=== PATIENT | female | born 1970 | race Caucasian/White ===

== ENCOUNTER → 2016-11-17 | Outpatient (REF) | payer OTHER, MEDICAID | LOC: M LAB REF 15:48 | PROVIDERS: ATTEND Physician Assistant | DX: J11.00 Influenza due to unidentified influenza virus with unspecified type of pneumonia (principal) ==

== ENCOUNTER → 2017-01-17 | Outpatient (REF) | payer OTHER, MEDICAID | LOC: M LAB REF 09:24 | PROVIDERS: ATTEND Physician Assistant Medical | DX: R30.0 Dysuria (principal) ==

== ENCOUNTER 2017-02-03 16:32 | Emergency (ER) | payer MEDICAID, OTHER ==
[~2017-02-03] VITALS: Ht 167.6 cm; Wt 64.0 kg
[2017-02-03 17:07] LABS: BASO % 0.6 % (0.0-1.0); EOS # 0.1 K/mm3 (0.0-0.50); EOS % 1.7 % (0.0-3.0); LARGE UNSTAINED CELL # 0.2 K/mm3 (0.0-0.4); LARGE UNSTAINED CELL % 2.6 % (0.0-4.0); LYMPH # 1.7 K/mm3 (1.5-4.5); LYMPH % 25.5 % (24.0-44.0); MEAN CORPUSCULAR HEMOGLOBIN 29.1 pg (27.0-33.0); MEAN CORPUSCULAR HGB CONC 32.8 g/dl (32.0-36.5); MEAN CORPUSCULAR VOLUME 88.9 fl (80.0-96.0); MONO # 0.4 K/mm3 (0.0-0.8); MONO % 5.6 % (0.0-5.0); NEUTROPHILS # 4.2 K/mm3 (1.8-7.7); NEUTROPHILS % 64.1 % (36.0-66.0); PLATELET COUNT, AUTOMATED 183 k/mm3 (150-450); RED CELL DISTRIBUTION WIDTH 13.7 % (11.5-14.5); WHITE BLOOD COUNT 6.5 K/mm3 (4.0-10.0)
[2017-02-03 17:30] LABS: ANION GAP 7 MEQ/L (8-16); BLOOD UREA NITROGEN 12 MG/DL (7-18); CALCIUM LEVEL 9.1 MG/DL (8.5-10.1); CARBON DIOXIDE LEVEL 28 MEQ/L (21-32); CHLORIDE LEVEL 105 MEQ/L (98-107); CREATININE FOR GFR 0.72 MG/DL (0.55-1.02); GLOMERULAR FILTRATION RATE > 60.0 (>58); GLUCOSE, FASTING 101 MG/DL (70-105); POTASSIUM SERUM 3.8 MEQ/L (3.5-5.1); SODIUM LEVEL 140 MEQ/L (136-145)
--- NOTE | 2017-02-03 17:59 | REP ---
PORTABLE CHEST: HISTORY: Chest pain. COMPARISON: 06/12/2016 The technique utilized in obtaining the radiograph has magnified the cardiac silhouette and accentuated the interstitial markings. The superior mediastinal structures are midline. The cardiac silhouette is unremarkable in size, shape, and position. The diaphragmatic surfaces of the lungs are regular, and the costophrenic angles are clear. The pulmonary rivera are clear. The imaged osseous structures are intact. IMPRESSION: There is no acute cardiopulmonary disease. Signed by Ruben Clay DO 02/05/2017 03:42 P
[2017-02-03] MEDS ORDERED: NITROGLYCERIN 0.4 MG SUBL TABLET SL PRN (18:15)
[2017-02-03 18:24] VITALS: BP 129/72
[2017-02-03] MEDS ORDERED: ASPIRIN 81 MG CHEW TABLET PO ONE (18:30)
[2017-02-03] MEDS ORDERED: fentaNYL 100 MCG/2 ML INJECTION (J3010) IV ONE (19:15)
[2017-02-03 22:02] VITALS: BP 119/71
--- NOTE | 2017-02-04 08:40 | ECGEPIP ---
Stationary ECG Study [facility] - ED Test Date: 2017-02-03 Pat Name: DIDI PATEL Department: Room: - Gender: F Cps Team Lead: : 1970 Requested By: Shea Buchanan Order Number: [id number] Reading MD: Shea Buchanan Measurements Intervals [place] Rate: 68 P: 66 [place]: 147 QRS: 37 QRSD: 81 T: 36 QT: 349 QTc: 373 Interpretive Statements SINUS RHYTHM WITH SINUS ARRHYTHMIA LOW QRS VOLTAGE IN PRECORDIAL LEADS ANTEROSEPTAL MYOCARDIAL INFARCTION, OF INDETERMINATE AGE INCREASED RATE 06/12/16 Electronically Signed On 02-04-2017 8:40:01 EDT by Shea Buchanan
--- NOTE | 2017-02-04 08:44 | ECGEPIP ---
Stationary ECG Study [facility] - ED Test Date: 2017-02-03 Pat Name: DIDI PATEL Department: Room: - Gender: F Social Security Assessor: adeola : 1970 Requested By: COREEN SAGE Order Number: [id number] Reading MD: Shea Buchanan Measurements Intervals [place] Rate: 50 P: 67 [place]: 145 QRS: 58 QRSD: 86 T: 43 QT: 394 QTc: 361 Interpretive Statements SINUS BRADYCARDIA SEPTAL MYOCARDIAL INFARCTION, PROBABLY OLD DECREASED RATE 02/03/17 17:00 Electronically Signed On 02-04-2017 8:44:06 EDT by Shea Buchanan
== END 2017-02-03 22:30 | disposition home or self-care (01) ==
LOC: M ED 17:35
DX: R07.9 Chest pain, unspecified (principal); R11.0 Nausea; D64.9 Anemia, unspecified; Z91.018 Allergy to other foods
CPT/HCPCS: 71010; 80048; 82550; 82553; 85025; 85379; 93005; 93041; 94760; 96374; 99285; J3010

== ENCOUNTER → 2017-02-24 | Outpatient (REF) | payer OTHER | LOC: M LAB REF 16:29 | PROVIDERS: ATTEND Physician Assistant | DX: R30.0 Dysuria (principal) ==

== ENCOUNTER → 2017-04-14 | Outpatient (REF) | payer OTHER | LOC: M LAB REF 16:48 | PROVIDERS: ATTEND Physician Assistant | DX: R30.0 Dysuria (principal) ==

== ENCOUNTER → 2017-06-16 | Outpatient (REF) | payer OTHER | LOC: M LAB REF 16:00 | PROVIDERS: ATTEND Physician Assistant Medical | DX: N39.0 Urinary tract infection, site not specified (principal) ==

== ENCOUNTER → 2017-07-14 | Outpatient (REF) | payer OTHER | LOC: M LAB REF 16:35 | PROVIDERS: ATTEND Advanced Practice Midwife | DX: Z12.4 Encounter for screening for malignant neoplasm of cervix (principal); R30.0 Dysuria ==

== ENCOUNTER → 2017-11-20 | Outpatient (REF) | payer OTHER ==
[2017-11-20 21:57] LABS: AMORPHOUS SEDIMENT SMALL (NEGATIVE); APPEARANCE, URINE CLOUDY (CLEAR); BACTERIA, URINE AUTO NEGATIVE (NEGATIVE); BILIRUBIN, URINE AUTO NEGATIVE (NEGATIVE); BLOOD, URINE BLOOD NEGATIVE (NEGATIVE); COLOR, URINE YELLOW (YELLOW); GLUCOSE, URINE (UA) AUTO NEGATIVE (NEGATIVE); KETONE, URINE AUTO NEGATIVE (NEGATIVE); LEUKOCYTE ESTERASE, URINE AUTO NEGATIVE (NEGATIVE); MUCUS, URINE SMALL (NEGATIVE); NITRITE, URINE AUTO NEGATIVE (NEGATIVE); PROTEIN, URINE AUTO NEGATIVE (NEGATIVE); RBC, URINE AUTO 1 /HPF (0-3); SPECIFIC GRAVITY URINE AUTO 1.024 (1.002-1.035); SQUAMOUS EPITHELIAL CELL UR AU 3 /HPF (0-6); WBC, URINE AUTO 2 /HPF (0-3)
== END ==
LOC: M LAB REF 15:08
DX: N39.0 Urinary tract infection, site not specified (principal)

== ENCOUNTER → 2018-02-07 | Outpatient (REF) | payer OTHER ==
[2018-02-07 14:00] LABS: AMORPHOUS SEDIMENT SMALL (NEGATIVE); APPEARANCE, URINE CLEAR (CLEAR); BACTERIA, URINE AUTO NEGATIVE (NEGATIVE); BILIRUBIN, URINE AUTO NEGATIVE (NEGATIVE); BLOOD, URINE BLOOD NEGATIVE (NEGATIVE); COLOR, URINE STRAW (YELLOW); GLUCOSE, URINE (UA) AUTO NEGATIVE (NEGATIVE); KETONE, URINE AUTO NEGATIVE (NEGATIVE); LEUKOCYTE ESTERASE, URINE AUTO NEGATIVE (NEGATIVE); NITRITE, URINE AUTO NEGATIVE (NEGATIVE); PROTEIN, URINE AUTO NEGATIVE (NEGATIVE); RBC, URINE AUTO 0 /HPF (0-3); SPECIFIC GRAVITY URINE AUTO 1.004 (1.002-1.035); SQUAMOUS EPITHELIAL CELL UR AU 1 /HPF (0-6); UROBILINOGEN, URINE AUTO 0.2 mg/dL (0.0-2.0); WBC, URINE AUTO 0 /HPF (0-3)
== END ==
LOC: M LAB REF 12:54
DX: N39.0 Urinary tract infection, site not specified (principal)
CPT/HCPCS: 81001

== ENCOUNTER → 2018-03-15 | Outpatient (REF) | payer OTHER ==
[2018-03-15 19:53] LABS: APPEARANCE, URINE CLEAR (CLEAR); BACTERIA, URINE AUTO NEGATIVE (NEGATIVE); BILIRUBIN, URINE AUTO NEGATIVE (NEGATIVE); BLOOD, URINE BLOOD NEGATIVE (NEGATIVE); COLOR, URINE YELLOW (YELLOW); GLUCOSE, URINE (UA) AUTO NEGATIVE (NEGATIVE); KETONE, URINE AUTO NEGATIVE (NEGATIVE); LEUKOCYTE ESTERASE, URINE AUTO NEGATIVE (NEGATIVE); NITRITE, URINE AUTO NEGATIVE (NEGATIVE); PROTEIN, URINE AUTO NEGATIVE (NEGATIVE); RBC, URINE AUTO 0 /HPF (0-3); SPECIFIC GRAVITY URINE AUTO 1.002 (1.002-1.035); SQUAMOUS EPITHELIAL CELL UR AU 1 /HPF (0-6); UROBILINOGEN, URINE AUTO 0.2 mg/dL (0.0-2.0); WBC, URINE AUTO 1 /HPF (0-3)
== END ==
LOC: M LAB REF 17:09
DX: N39.46 Mixed incontinence (principal)

== ENCOUNTER → 2018-04-27 | Outpatient (REF) | payer OTHER ==
[2018-04-27 21:44] LABS: AMORPHOUS SEDIMENT SMALL (NEGATIVE); APPEARANCE, URINE CLOUDY (CLEAR); BACTERIA, URINE AUTO NEGATIVE (NEGATIVE); BILIRUBIN, URINE AUTO NEGATIVE (NEGATIVE); BLOOD, URINE BLOOD NEGATIVE (NEGATIVE); COLOR, URINE YELLOW (YELLOW); GLUCOSE, URINE (UA) AUTO NEGATIVE (NEGATIVE); KETONE, URINE AUTO NEGATIVE (NEGATIVE); LEUKOCYTE ESTERASE, URINE AUTO NEGATIVE (NEGATIVE); NITRITE, URINE AUTO NEGATIVE (NEGATIVE); PROTEIN, URINE AUTO NEGATIVE (NEGATIVE); RBC, URINE AUTO 2 /HPF (0-3); SPECIFIC GRAVITY URINE AUTO 1.017 (1.002-1.035); SQUAMOUS EPITHELIAL CELL UR AU 3 /HPF (0-6); WBC, URINE AUTO 1 /HPF (0-3)
== END ==
LOC: M LAB REF 15:54
DX: N39.0 Urinary tract infection, site not specified (principal)
CPT/HCPCS: 81001

== ENCOUNTER → 2018-06-24 | Outpatient (CLI) | payer OTHER | LOC: M RAD 10:54 | DX: Z12.31 Encounter for screening mammogram for malignant neoplasm of breast (principal); Z53.9 Procedure and treatment not carried out, unspecified reason ==

== ENCOUNTER → 2018-07-18 | Outpatient (CLI) | payer OTHER ==
[2018-07-18 12:21] LABS: HEMATOCRIT 44.1 % (36.0-47.0); HEMOGLOBIN 14.6 g/dl (12.0-15.5); MEAN CORPUSCULAR HEMOGLOBIN 30.2 pg (27.0-33.0); MEAN CORPUSCULAR HGB CONC 33.1 g/dl (32.0-36.5); MEAN CORPUSCULAR VOLUME 91.1 fl (80.0-96.0); PLATELET COUNT, AUTOMATED 163 10^3/uL (150-450); RED BLOOD COUNT 4.84 10^6/uL (4.00-5.40); RED CELL DISTRIBUTION WIDTH 13.6 % (11.5-14.5); WHITE BLOOD COUNT 7.5 10^3/uL (4.0-10.0)
[2018-07-18 12:43] LABS: ALT/SGPT 17 U/L (12-78); ANION GAP 5 MEQ/L (8-16); AST/SGOT 12 U/L (7-37); BLOOD UREA NITROGEN 11 MG/DL (7-18); CALCIUM LEVEL 9.2 MG/DL (8.5-10.1); CARBON DIOXIDE LEVEL 26 MEQ/L (21-32); CHLORIDE LEVEL 108 MEQ/L (98-107); CREATININE FOR GFR 0.75 MG/DL (0.55-1.30); GLOMERULAR FILTRATION RATE > 60.0 (>58); GLUCOSE, FASTING 81 MG/DL (70-100); POTASSIUM SERUM 4.5 MEQ/L (3.5-5.1); SODIUM LEVEL 139 MEQ/L (136-145)
[2018-07-18 12:44] LABS: ALBUMIN 4.1 GM/DL (3.2-5.2); ALBUMIN/GLOBULIN RATIO 1.17 (1.00-1.93); ALKALINE PHOSPHATASE 61 U/L (45-117); BILIRUBIN,TOTAL 0.7 MG/DL (0.2-1.0); CHOLESTEROL LEVEL 163 MG/DL (<200); FREE T4 0.88 NG/DL (0.76-1.46); HDL CHOLESTEROL 50 MG/DL (>40); LDL CHOLESTEROL 94 MG/DL (<100); NON-HDL-C 113 MG/DL; TOTAL PROTEIN 7.6 GM/DL (6.4-8.2); TRIGLYCERIDES LEVEL 96 MG/DL (<150)
== END ==
LOC: M LAB 11:38
DX: Z00.00 Encounter for general adult medical examination without abnormal findings (principal); R53.83 Other fatigue; Z13.220 Encounter for screening for lipoid disorders
CPT/HCPCS: 84443

== ENCOUNTER 2018-08-05 06:09 | Day surgery (SDC) | payer OTHER ==
[2018-08-05] MEDS: LR 1,000 ML IV ×2 (06:31→18:40)
[2018-08-05 06:38] LABS: HEMATOCRIT 47.8 % (36.0-47.0); HEMOGLOBIN 15.7 g/dl (12.0-15.5); MEAN CORPUSCULAR HEMOGLOBIN 30.1 pg (27.0-33.0); MEAN CORPUSCULAR HGB CONC 32.8 g/dl (32.0-36.5); MEAN CORPUSCULAR VOLUME 91.6 fl (80.0-96.0); PLATELET COUNT, AUTOMATED 239 10^3/uL (150-450); RED BLOOD COUNT 5.22 10^6/uL (4.00-5.40); RED CELL DISTRIBUTION WIDTH 13.3 % (11.5-14.5); WHITE BLOOD COUNT 10.9 10^3/uL (4.0-10.0)
[2018-08-05 06:53] LABS: CONTROL LINE HCG INT CTR LINE PRESENT; HCG, SERUM QUALITATIVE NEGATIVE (NEGATIVE)
[2018-08-05] MEDS ORDERED: dexameTHASONE 4 MG/ML 1ML VIAL (J1100) As Ordered (07:07)
[2018-08-05] MEDS ORDERED: PROPOFOL 200 MG/20 ML VIAL As Ordered (07:07)
[2018-08-05] MEDS ORDERED: LIDOCAINE 2% JELLY 30 ML As Ordered (07:07)
[2018-08-05] MEDS ORDERED: fentaNYL 100 MCG/2 ML INJECTION (J3010) As Ordered (07:07)
[2018-08-05] MEDS ORDERED: NEOSTIGMINE 10 MG/10 ML VIAL (J2710) As Ordered (07:07)
[2018-08-05] MEDS ORDERED: LIDOCAINE 2% INJ 100 MG/5 ML SDV (FOR ANES.) As Ordered (07:07)
[2018-08-05] MEDS ORDERED: ONDANSETRON 4MG/2ML VIAL (J2405) As Ordered (07:07)
[2018-08-05] MEDS ORDERED: ROCURONIUM BROMIDE 50 MG/5 ML VIAL As Ordered (07:07)
[2018-08-05] MEDS ORDERED: MIDAZOLAM INJ 2 MG/2 ML VIAL (J2250) As Ordered (07:07)
[2018-08-05] MEDS ORDERED: GLYCOPYRROLATE INJ 0.2 MG/ML 2 ML VIAL As Ordered (07:07)
[2018-08-05] MEDS ORDERED: HYDROmorphone HCL 2 MG/ML 1ML VIAL (J1170) As Ordered (07:07)
[2018-08-05] MEDS ORDERED: KETOROLAC 60 MG/2 ML VIAL (J1885) As Ordered (07:07)
[2018-08-05] MEDS ORDERED: ALBUTEROL SULFATE 2.5 MG/0.5 ML INH NEB SOLN As Ordered (07:20)
[2018-08-05] MEDS ORDERED: ePHEDrine SULFATE 25 MG/5 ML(5MG/ML) SYRINGE As Ordered (08:06)
[2018-08-05] MEDS: ceFAZolin 2 GM/D5W 50 ML IV BAG (J0690 PER 500MG) As Ordered (08:12)
[2018-08-05] MEDS ORDERED: PHENYLephrine HCL 500 MCG/5 ML (100MCG/ML) SYRINGE (J2370) As Ordered (08:33)
[2018-08-05] MEDS: BUPIVACAINE/EPIN 0.25% 30 ML VIAL As Ordered (09:00)
[2018-08-05] MEDS ORDERED: PERCOCET 5MG/325MG TAB PO (10:00)
[2018-08-05] MEDS ORDERED: fentaNYL 100 MCG/2 ML INJECTION (J3010) IV (10:00)
[2018-08-05] MEDS: ONDANSETRON 4MG/2ML VIAL (J2405) IV (10:11)
[2018-08-05] MEDS: KETOROLAC 30 MG/ML VIAL (J1885) IV (16:53)
[2018-08-05] MEDS: ALPRAZolam 0.25 MG TAB PO (16:53)
[2018-08-05] MEDS: PERCOCET 5MG/325MG TAB PO (19:50)
[2018-08-05] MEDS: SLF 3 ML SYR IV (23:43)
[2018-08-06] MEDS: SLF 3 ML SYR IV (06:28)
== END 2018-08-06 10:30 | disposition home or self-care (01) ==
LOC: M SDC 06:09 → M PED 18:14
DX: N81.11 Cystocele, midline (principal); N81.6 Rectocele; I49.9 Cardiac arrhythmia, unspecified; D64.9 Anemia, unspecified; F41.9 Anxiety disorder, unspecified; F32.9 Major depressive disorder, single episode, unspecified; R29.898 Other symptoms and signs involving the musculoskeletal system; F43.10 Post-traumatic stress disorder, unspecified; R06.02 Shortness of breath; N39.3 Stress incontinence (female) (male); T88.59XD Other complications of anesthesia, subsequent encounter; R09.89 Other specified symptoms and signs involving the circulatory and respiratory systems; Z91.018 Allergy to other foods; Z91.09 Other allergy status, other than to drugs and biological substances; Z98.51 Tubal ligation status; Z31.0 Encounter for reversal of previous sterilization
CPT/HCPCS: 57260

== ENCOUNTER 2018-08-10 21:28 | Emergency (ER) | payer OTHER | END 2018-08-11 00:24 | disposition left against medical advice (07) | LOC: M ED 08-11 00:24 | DX: R11.0 Nausea (principal); Z53.21 Procedure and treatment not carried out due to patient leaving prior to being seen by health care provider ==

== ENCOUNTER → 2018-11-01 | Outpatient (REF) | payer OTHER ==
[~2018-11-01] MED LIST: HAIRTAB PO; NITR100C2; OXYC1TAB23 PO; TRAM50TA2 PO; WOMECAP2 PO
[2018-11-01 17:55] LABS: APPEARANCE, URINE CLEAR (CLEAR); BACTERIA, URINE AUTO NEGATIVE (NEGATIVE); BILIRUBIN, URINE AUTO NEGATIVE (NEGATIVE); BLOOD, URINE BLOOD NEGATIVE (NEGATIVE); COLOR, URINE YELLOW (YELLOW); GLUCOSE, URINE (UA) AUTO NEGATIVE (NEGATIVE); KETONE, URINE AUTO NEGATIVE (NEGATIVE); LEUKOCYTE ESTERASE, URINE AUTO NEGATIVE (NEGATIVE); MUCUS, URINE SMALL (NEGATIVE); NITRITE, URINE AUTO NEGATIVE (NEGATIVE); PROTEIN, URINE AUTO NEGATIVE (NEGATIVE); RBC, URINE AUTO 1 /HPF (0-3); SPECIFIC GRAVITY URINE AUTO 1.019 (1.002-1.035); SQUAMOUS EPITHELIAL CELL UR AU 3 /HPF (0-6); UROBILINOGEN, URINE AUTO 0.2 mg/dL (0.0-2.0); WBC, URINE AUTO 3 /HPF (0-3)
== END ==
LOC: M LAB REF 16:39
PROVIDERS: ATTEND Physician Assistant Medical
DX: N39.0 Urinary tract infection, site not specified (principal)

== ENCOUNTER → 2018-11-09 | Outpatient (REF) | payer OTHER | LOC: M LAB REF 17:14 | PROVIDERS: ATTEND Obstetrics & Gynecology | DX: R30.0 Dysuria (principal) ==

== ENCOUNTER → 2018-11-21 | Outpatient (CLI) | payer OTHER ==
--- NOTE | 2018-11-22 05:53 | REP ---
Clinical: Pelvic and perineal pain . Technique: Transabdominal pelvic ultrasound followed by transvaginal examination for better evaluation of the endometrium and adnexa with color Doppler evaluation of the ovaries. Findings: Bladder is unremarkable and measures 9.4 x 5.9 x 5.9 cm . Normal retroflexed uterus measures 8.6 x 5.5 x 6.2 cm . The endometrial complex measures 16.3 mm thickness. No discrete uterine or endometrial abnormalities are appreciated. Bilateral ovaries are normal in appearance and vascularity without evidence for torsion. Right ovary measures 3.8 x 2.7 x 3.4 cm with 2.4 cm complex likely physiologic cyst ; R I = 0.51 . Left ovary measures 3.5 x 2.2 x 1.7 cm with degenerating hemorrhagic cyst ; R I = 0.51 . Small amount of free fluid in the cul-de-sac. No pelvic mass . Impression: 1. Retroflexed uterus with few Nabothian cysts. 2. Presumed physiologic changes to the bilateral ovaries without evidence for torsion. Consider reevaluation in 4-6 weeks to evaluate for resolution if the patient remains symptomatic. Electronically Signed by Donta Pantoja MD 11/22/2018 05:45 A
--- NOTE | 2018-11-22 05:56 | REP ---
Clinical: Bladder stone. Technique: Real time rivers scale and color evaluation of the kidneys and bladder using curved array transducer. Findings: The bilateral kidneys are normal in contour, size, echogenicity, and reniform shape without hydronephrosis, nephrolithiasis, cystic or renal mass lesion. Right kidney measures 11.2 x 5.0 x 3.7 cm. Left kidney measures 11.0 x 5.7 x 4.2 cm. Bladder is normal in appearance demonstrating bilateral ureteral jets without wall thickening, mass lesion, or obvious bladder calculus. Impression: Normal renal/bladder ultrasound. Electronically Signed by Donta Pantoja MD 11/22/2018 05:48 A
== END ==
LOC: M SMT 11:04
PROVIDERS: ATTEND Obstetrics & Gynecology
DX: R10.2 Pelvic and perineal pain (principal); N21.0 Calculus in bladder

== ENCOUNTER → 2018-12-16 | Outpatient (REF) | payer OTHER ==
[2018-12-16 17:57] LABS: APPEARANCE, URINE HAZY (CLEAR); BACTERIA, URINE AUTO NEGATIVE (NEGATIVE); BILIRUBIN, URINE AUTO NEGATIVE (NEGATIVE); BLOOD, URINE BLOOD NEGATIVE (NEGATIVE); COLOR, URINE YELLOW (YELLOW); GLUCOSE, URINE (UA) AUTO NEGATIVE (NEGATIVE); KETONE, URINE AUTO NEGATIVE (NEGATIVE); LEUKOCYTE ESTERASE, URINE AUTO NEGATIVE (NEGATIVE); MUCUS, URINE SMALL (NEGATIVE); NITRITE, URINE AUTO NEGATIVE (NEGATIVE); PROTEIN, URINE AUTO NEGATIVE (NEGATIVE); RBC, URINE AUTO 1 /HPF (0-3); SPECIFIC GRAVITY URINE AUTO 1.023 (1.002-1.035); SQUAMOUS EPITHELIAL CELL UR AU 7 /HPF (0-6); WBC, URINE AUTO 1 /HPF (0-3)
== END ==
LOC: M LAB REF 17:12
PROVIDERS: ATTEND Physician Assistant
DX: N39.0 Urinary tract infection, site not specified (principal)

== ENCOUNTER → 2019-01-27 | Outpatient (REF) | payer OTHER ==
[2019-01-27 12:55] LABS: APPEARANCE, URINE CLEAR (CLEAR); BACTERIA, URINE AUTO NEGATIVE (NEGATIVE); BILIRUBIN, URINE AUTO NEGATIVE (NEGATIVE); BLOOD, URINE BLOOD NEGATIVE (NEGATIVE); COLOR, URINE YELLOW (YELLOW); GLUCOSE, URINE (UA) AUTO NEGATIVE (NEGATIVE); KETONE, URINE AUTO NEGATIVE (NEGATIVE); LEUKOCYTE ESTERASE, URINE AUTO NEGATIVE (NEGATIVE); MUCUS, URINE SMALL (NEGATIVE); NITRITE, URINE AUTO NEGATIVE (NEGATIVE); PROTEIN, URINE AUTO NEGATIVE (NEGATIVE); RBC, URINE AUTO 0 /HPF (0-3); SPECIFIC GRAVITY URINE AUTO 1.012 (1.002-1.035); SQUAMOUS EPITHELIAL CELL UR AU 4 /HPF (0-6); UROBILINOGEN, URINE AUTO 0.2 mg/dL (0.0-2.0); WBC, URINE AUTO 2 /HPF (0-3)
== END ==
LOC: M LAB REF 11:53
PROVIDERS: ATTEND Family Medicine
DX: Z13.228 Encounter for screening for other metabolic disorders (principal)

== ENCOUNTER → 2019-01-27 | Outpatient (REF) | payer OTHER, MEDICAID ==
[2019-01-27 12:34] LABS: BASO % 0.4 % (0.0-1.0); EOS # 0.1 10^3/uL (0.0-0.50); EOS % 0.6 % (0.0-3.0); HEMOGLOBIN 14.4 g/dl (12.0-15.5); LYMPH # 1.6 10^3/uL (1.5-4.5); LYMPH % 20.9 % (24.0-44.0); MEAN CORPUSCULAR HEMOGLOBIN 28.6 pg (27.0-33.0); MEAN CORPUSCULAR VOLUME 89.5 fl (80.0-96.0); MONO # 0.7 10^3/uL (0.0-0.8); MONO % 9.5 % (0.0-5.0); NEUTROPHILS # 5.3 10^3/uL (1.8-7.7); NEUTROPHILS % 68.3 % (36.0-66.0); PLATELET COUNT, AUTOMATED 198 10^3/uL (150-450); RED BLOOD COUNT 5.03 10^6/uL (4.00-5.40); WHITE BLOOD COUNT 7.7 10^3/uL (4.0-10.0)
[2019-01-27 13:03] LABS: ALT/SGPT 16 U/L (12-78); BILIRUBIN,TOTAL 0.7 MG/DL (0.2-1.0); BLOOD UREA NITROGEN 10 MG/DL (7-18); CALCIUM LEVEL 8.6 MG/DL (8.5-10.1); CARBON DIOXIDE LEVEL 25 MEQ/L (21-32); CHLORIDE LEVEL 106 MEQ/L (98-107); CHOLESTEROL LEVEL 156 MG/DL (<200); CHOLESTEROL RISK RATIO 3.545 (<5); CREATININE FOR GFR 0.75 MG/DL (0.55-1.30); FREE T4 0.92 NG/DL (0.76-1.46); GLOMERULAR FILTRATION RATE > 60.0 (>58); GLUCOSE, FASTING 93 MG/DL (70-100); HDL CHOLESTEROL 44 MG/DL (>40); LDL CHOLESTEROL 93 MG/DL (<100); NON-HDL-C 112 MG/DL; POTASSIUM SERUM 4.1 MEQ/L (3.5-5.1); SODIUM LEVEL 138 MEQ/L (136-145); TOTAL PROTEIN 7.3 GM/DL (6.4-8.2); TRIGLYCERIDES LEVEL 94 MG/DL (<150)
[2019-01-27 17:52] LABS: TOTAL 25(OH) VITAMIN D 16.5 NG/ML (30.0-100.0)
[2019-01-29 00:06] LABS: Lyme Disease IgG/IgM Antibodie <0.91 ISR (0.00-0.90); Lyme Disease IgM Ab Quantitati <0.80 index (0.00-0.79)
== END ==
LOC: M LAB REF 11:57
PROVIDERS: ATTEND Family Medicine
DX: Z13.228 Encounter for screening for other metabolic disorders (principal)

== ENCOUNTER → 2019-03-10 | Outpatient (REF) | payer OTHER ==
[2019-03-10 21:49] LABS: AMORPHOUS SEDIMENT SMALL (NEGATIVE); APPEARANCE, URINE CLOUDY (CLEAR); BACTERIA, URINE AUTO NEGATIVE (NEGATIVE); BILIRUBIN, URINE AUTO NEGATIVE (NEGATIVE); BLOOD, URINE BLOOD NEGATIVE (NEGATIVE); COLOR, URINE YELLOW (YELLOW); GLUCOSE, URINE (UA) AUTO NEGATIVE (NEGATIVE); KETONE, URINE AUTO NEGATIVE (NEGATIVE); LEUKOCYTE ESTERASE, URINE AUTO NEGATIVE (NEGATIVE); NITRITE, URINE AUTO NEGATIVE (NEGATIVE); PROTEIN, URINE AUTO NEGATIVE (NEGATIVE); RBC, URINE AUTO 2 /HPF (0-3); SPECIFIC GRAVITY URINE AUTO 1.015 (1.002-1.035); SQUAMOUS EPITHELIAL CELL UR AU 8 /HPF (0-6); WBC, URINE AUTO 7 /HPF (0-3)
== END ==
LOC: M LAB REF 13:56
PROVIDERS: ATTEND Physician Assistant
DX: N39.0 Urinary tract infection, site not specified (principal)

== ENCOUNTER → 2019-07-25 | Outpatient (REF) | payer OTHER, MEDICAID ==
[2019-07-28 14:29] LABS: HPV HYBRID CAPTURE II Negative (Negative)
== END ==
LOC: M LAB REF 08:19
PROVIDERS: ATTEND Obstetrics & Gynecology
DX: Z12.4 Encounter for screening for malignant neoplasm of cervix (principal)

== ENCOUNTER → 2019-08-22 | Outpatient (CLI) | payer OTHER ==
--- NOTE | 2019-08-22 14:36 | REP ---
BILATERAL SCREENING DIGITAL MAMMOGRAM WITH 3D TOMOSYNTHESIS: There are no palpable abnormalities or other breast complaints. The the patient states she has not had a clinical breast examination in over a year. The Tyrer-Cuzick Score is: 9.1% . There are no comparisons, this is a baseline study. The patient complains of diffuse left breast pain. There is no focal pain. There are no focal palpable lesions on the right on the left. The breasts are extremely dense, which lowers the sensitivity of mammography. I suspect there is a dominant 2.3 cm mass laterally in the left breast and a dominant 244 cm mass in the midline of the left breast. These may represent a large breast cysts. There is no micro calcific cluster or architectural distortion that would indicate malignancy. There are no additional findings on 3D tomosynthesiss. Impression: BIRADS/ACR category 0 mammogram. Additional imaging evaluation is needed. I recommend the patient return for spot compression views and ultrasound of each breast. Additionally, because of the extreme breast density, I also recommend MRI at this time. Followup routine annual MRI should also be considered in the future as discussed below. Because of the increased breast density, annual adjunctive breast MRI in addition to screening mammography is recommended. These can be performed at alternating six month intervals. This mammogram was interpreted with the aid of a FDA approved computer-aided detection system. A. Negative mammogram reports should not delay biopsy if a dominant or clinically suspicious mass is present. B. Not all breast cancers are identified by mammography or tomosynthesis. C. Adenosis and dense breasts may obscure an underlying neoplasm. Patient letter M0 dense breasts. Electronically Signed by Bob Bronson MD 08/22/2019 02:27 P
== END ==
LOC: M RAD 13:03
PROVIDERS: ATTEND Obstetrics & Gynecology
DX: Z12.31 Encounter for screening mammogram for malignant neoplasm of breast (principal)
CPT/HCPCS: 77066; G0279

== ENCOUNTER → 2019-09-04 | Outpatient (CLI) | payer OTHER | LOC: M SMT 14:27 | PROVIDERS: ATTEND Obstetrics & Gynecology | DX: Z13.79 Encounter for other screening for genetic and chromosomal anomalies (principal) ==

== ENCOUNTER → 2019-09-11 | Outpatient (CLI) | payer OTHER ==
--- NOTE | 2019-09-11 14:44 | REP ---
DIGITAL DIAGNOSTIC BILATERAL MAMMOGRAPHY WITH CAD AND FOCUSED BILATERAL BREAST SONOGRAPHY: HISTORY: Screening study from August 22, 2019 was read as BI-RADS 0, incomplete exam due to bilateral mammographically visible masses. Diagnostic imaging was recommended. FINDINGS: Focal spot compression CC and MLO views of each breast were obtained. Breast parenchyma is heterogeneously dense in a pattern which may inhibit the sensitivity of mammography. The dominant densities originally seen on August 22, 2019 are less conspicuous. No microcalcification or architectural distortion is seen. SONOGRAPHIC FINDINGS: At 9-o'clock position in the right breast laterally, there is a 2.5 x 2.4 x 1.1 cm cyst which is felt to account for the mammographic opacity. The left breast is scanned at 12-o'clock position, corresponding the mammographic opacity, and a 2.6 x 1.4 x 2.0 cm cyst is seen in this location. No sonographically suspicious feature. IMPRESSION: BIRADS 2: BI-RADS/ACR category 2 mammogram. Benign Findings. BI-RADS category 2, benign findings. There is a simple cyst in each breast accounting for the mammographic opacity. Repeat screening mammography recommended in 1 year. This mammogram was interpreted with the aid of an FDA-approved computer-aided detection system. The patient states that she/he has not had a clinical breast exam in over a year. The patient letter being requested is M1. Electronically Signed by Ander Chambers MD 09/11/2019 03:04 P
== END ==
LOC: M RAD 12:19
PROVIDERS: ATTEND Obstetrics & Gynecology
DX: N60.01 Solitary cyst of right breast (principal); N60.02 Solitary cyst of left breast

== ENCOUNTER → 2019-09-19 | Outpatient (CLI) | payer OTHER ==
[~2019-09-19] MED LIST changes: +PROHANCE 279.3MG/ML 15ML VIAL (A9576) As Ordered ONE
--- NOTE | 2019-09-19 12:10 | REP ---
BILATERAL BREAST MRI WITH AND WITHOUT CONTRAST: Comparison mammogram 08/22/2019 and 09/11/2019, ultrasound of the breasts 09/11/2019. Genetic susceptibility due to malignancy of the breast. TECHNIQUE: Multiple sequences obtained in the axial, coronal, and sagittal planes prior to and following the intravenous administration of 12 mL ProHance. Images are evaluated in the [employer] software including axial T1 fat sat dynamic post IV gadolinium images, subtraction images, CAD images, color overlay images, and MIP reconstruction images. There is an extreme pattern of breast parenchyma bilaterally. There are multiple subcentimeter cysts bilaterally. There are a few dominant cysts in the outer posterior right breast. Maximum diameter of these cysts is 2.7 cm. There are two dominant cysts in the left breast, one in the region of 12 o'clock with a maximum diameter of 2.2 cm and one in the axillary tail region. No axillary adenopathy is seen. There is moderate background parenchymal enhancement. No suspicious enhancing mass is seen bilaterally and there is no suspicious enhancing morphologic abnormality. IMPRESSION: BIRADS category 2, benign bilateral breast MRI. Cysts are seen in both breasts. There is no suspicious enhancing mass or morphologic abnormality bilaterally. Electronically Signed by Bob Stallings MD 09/19/2019 12:22 P
== END ==
LOC: M RAD 09:03
PROVIDERS: ATTEND Obstetrics & Gynecology
DX: Z15.01 Genetic susceptibility to malignant neoplasm of breast (principal); N60.01 Solitary cyst of right breast; N60.02 Solitary cyst of left breast
CPT/HCPCS: A9576; C8908

== ENCOUNTER → 2019-09-25 | Outpatient (REF) | payer OTHER ==
[~2019-09-25] MED LIST changes: -PROHANCE 279.3MG/ML 15ML VIAL (A9576) As Ordered ONE
== END ==
LOC: M WHC 13:18
PROVIDERS: ATTEND Surgery
DX: N60.02 Solitary cyst of left breast (principal)

== ENCOUNTER → 2019-09-29 | Outpatient (REF) | payer OTHER, MEDICAID ==
[2019-09-29 19:56] LABS: APPEARANCE, URINE CLEAR (CLEAR); BACTERIA, URINE AUTO NEGATIVE (NEGATIVE); BILIRUBIN, URINE AUTO NEGATIVE (NEGATIVE); BLOOD, URINE BLOOD NEGATIVE (NEGATIVE); COLOR, URINE YELLOW (YELLOW); GLUCOSE, URINE (UA) AUTO NEGATIVE (NEGATIVE); KETONE, URINE AUTO NEGATIVE (NEGATIVE); LEUKOCYTE ESTERASE, URINE AUTO NEGATIVE (NEGATIVE); NITRITE, URINE AUTO NEGATIVE (NEGATIVE); PROTEIN, URINE AUTO NEGATIVE (NEGATIVE); RBC, URINE AUTO 0 /HPF (0-3); SPECIFIC GRAVITY URINE AUTO 1.015 (1.002-1.035); SQUAMOUS EPITHELIAL CELL UR AU 1 /HPF (0-6); UROBILINOGEN, URINE AUTO 0.2 mg/dL (0.0-2.0); WBC, URINE AUTO 1 /HPF (0-3)
== END ==
LOC: M LAB REF 19:13
PROVIDERS: ATTEND Family Medicine
DX: N30.20 Other chronic cystitis without hematuria (principal)

== ENCOUNTER → 2019-10-25 | Outpatient (CLI) | payer OTHER ==
--- NOTE | 2019-10-25 13:53 | REP ---
FOCUSED BILATERAL BREAST SONOGRAPHY: HISTORY: Diffuse cystic mastopathy, right breast. Bilateral breast cysts, status post bilateral aspiration. Evaluate for recurrence of cysts. COMPARISON SONOGRAPHY: September 11, 2019 FINDINGS: The upper outer quadrant of the right breast is scanned. 5 cm from the nipple, there is a cyst containing septations measuring 3.0 x 1.9 x 2.1 cm. At 9-o'clock position 4 cm from the nipple, there is a cyst with septations measuring 0.9 x 0.4 x 1.2 cm. At 9-o'clock position 2 cm from the nipple, there is another cyst measuring 1.7 x 0.5 x 1.5 cm. These have benign features. The left breast is scanned at 2-o'clock and 4-o'clock position. No abnormalities noted. Heterogeneous fibroglandular background echotexture is seen. IMPRESSION: BI-RADS category 2 benign findings. Benign cysts identified in the right breast.
== END ==
LOC: M WHC 10:41
PROVIDERS: ATTEND Surgery
DX: N60.11 Diffuse cystic mastopathy of right breast (principal)

== ENCOUNTER → 2019-10-27 | Outpatient (REF) | payer OTHER ==
[2019-10-27 15:58] LABS: APPEARANCE, URINE CLEAR (CLEAR); BACTERIA, URINE AUTO 1+ (NEGATIVE); BILIRUBIN, URINE AUTO NEGATIVE (NEGATIVE); BLOOD, URINE BLOOD 3+ (NEGATIVE); COLOR, URINE YELLOW (YELLOW); GLUCOSE, URINE (UA) AUTO NEGATIVE (NEGATIVE); KETONE, URINE AUTO NEGATIVE (NEGATIVE); LEUKOCYTE ESTERASE, URINE AUTO NEGATIVE (NEGATIVE); NITRITE, URINE AUTO NEGATIVE (NEGATIVE); PROTEIN, URINE AUTO NEGATIVE (NEGATIVE); RBC, URINE AUTO 13 /HPF (0-3); SPECIFIC GRAVITY URINE AUTO 1.005 (1.002-1.035); SQUAMOUS EPITHELIAL CELL UR AU 1 /HPF (0-6); UROBILINOGEN, URINE AUTO 0.2 mg/dL (0.0-2.0); WBC, URINE AUTO 3 /HPF (0-3)
== END ==
LOC: M LAB REF 15:44
PROVIDERS: ATTEND Physician Assistant
DX: N39.0 Urinary tract infection, site not specified (principal)

== ENCOUNTER → 2019-11-06 | Outpatient (CLI) | payer OTHER ==
[~2019-11-06] MED LIST changes: +LIDOCAINE 1% MDV 20ML VIAL As Ordered ONE; +SODIUM BICARBONATE 8.4% INJ 50MEQ 50 ML VIAL As Ordered ONE
[2019-11-06 10:36] VITALS: BP 128/85
--- NOTE | 2019-11-06 11:05 | REP ---
Digital diagnostic unilateral left breast mammography with CAD: Three views. History: Marker clip placement views. The patient is status post ultrasound-guided needle biopsy by Dr. Gallo. Comparison mammography September 11, 2019. Findings: The needle biopsy marker clip is seen projecting in the upper outer quadrant. No evidence of hematoma. No mammographic abnormality. Impression: BIRADS 2: BI-RADS/ACR category 2 mammogram. Benign Findings. BIRADS category 2 benign left breast images. Marker clip in the upper outer quadrant. This mammogram was interpreted with the aid of an FDA-approved computer-aided detection system. Electronically Signed by Ander Chambers MD 11/06/2019 07:44 P
--- NOTE | 2019-11-06 13:46 | REP ---
Bilateral breast sonography: Sonographic guidance is provided to Dr. Gallo, who performed the right breast cyst aspiration and left breast needle biopsy procedure. Electronically Signed by Ander Chambers MD 11/06/2019 07:47 P
--- NOTE | 2019-11-06 17:45 | ROOPDOC ---
[facility] Report Of Operation Report of Operation DATE OF PROCEDURE: 11/06/19 PREPROCEDURE DIAGNOSES: Right breast cysts and Left breast mass. POSTPROCEDURE DIAGNOSES: Right breast cysts and Left breast mass PROCEDURE: Ultrasound guided aspiration of right breast cysts and biopsy of left breast mass with left breast clip placement SURGEON: Melvin Gallo FLOUR DISTRIBUTOR: ANESTHESIA: local ESTIMATED BLOOD LOSS: Approximately 1 mL. COMPLICATIONS: none DESCRIPTION OF PROCEDURE: Lidocaine 1% LOT [id number] Expiration Sodium Bicarbonate 8.4% LOT [id number] Expiration Hydromark clip LOT [id number] Expiration Bx device: BARD [id number] x10 cm LOT [id number] Expiration Lidocaine total 16 cc Informed consent was obtained in the preop area. The most common risk and possible complications including bleeding, hematoma, bruising, infection, injury to surrounding structures were explained to the patient and she expressed understanding. Patient was taken to the procedure room and placed on the bed in the supine position. Appropriate time out was done stating patients name, date of , and the procedure to be performed. The procedure was started on the right side. The right upper extremity placed above the head. The right breast was prepped and draped in the usual fashion. The ultrasound was used to confirm the location of the right breast cysts at 10:00 and 9:00. Plain Lidocaine 1% and 8.4% sodium bicarbonate 10:1 mix was used to numb the skin, the needle track and the area surrounding both cysts. Our attention was first turned to the cyst at 10:00 which was smaller. Cyst was punctured and about 2 cc of straw colored fluid was aspirated. The right breast cyst at 10:00 was completely collapsed post aspiration. It is important to mention that the surrounding breast tissue is very dense. Next, our attention was turned toward the bigger cyst at 9:00. Cyst appeared to have thick bertrand as it was difficult to cannulate it. After cannulation, dark fluid was aspirated and sent to the lab for cytological evaluation. Manual pressure over the aspiration site and needle tract was held. No bleeding was noted upon removal of the pressure. Steri Strips were placed over the needle puncture sites. At this time patient was repositioned and the left upper extremity was placed above the head. The left breast was prepped and draped in the usual fashion. The ultrasound and palpation were used to confirm the location of the palpable lesion at 2:00. Ultrasound evaluation showed thick breast tissue which appeared close to the skin. A distinct mass was palpated in this region. Plain Lidocaine 1% and 8.4% sodium bicarbonate 10:1 mix was used to numb the skin, the biopsy site and tissues along the anticipated biopsy tract. Small skin incision was made with blade number 11. BARD Marquee 14G cannula with introducer ([id number]) was inserted through the incision and advanced under the ultrasound guidance to position immediately adjacent to the lesion. Next, the introducer was removed and BARD Marquee 14G biopsy device was places in the cannula. Pre-biopsy imaging, and post-biopsy imaging were captured. Five good core biopsies were taken at various levels of the lesion. Next, the biopsy device was withdrawn and a clip introducer was inserted into the biopsy site via the cannula. The Hydromark clip was deployed under direct vision. Post-clip placement image was captured. Manual pressure over the biopsy cavity and tract was held after the clip introducer was withdrawn. No bleeding was noted upon removal of the pressure. Post-biopsy mammogram of the left breast was obtained and showed clip in expected position. Postprocedural dressing was placed. Patient tolerated procedure well and was taken to the recovery unit in stable condition. Discharge instructions were discussed with the patient and she expressed understanding. MELVIN López DO Nov 06, 2019 17:45
== END ==
LOC: M IRPRO 08:04
PROVIDERS: ATTEND Surgery
DX: N60.12 Diffuse cystic mastopathy of left breast (principal); N60.01 Solitary cyst of right breast

== ENCOUNTER → 2019-11-06 | Outpatient (REF) | payer OTHER ==
[~2019-11-06] MED LIST changes: -LIDOCAINE 1% MDV 20ML VIAL As Ordered ONE; -SODIUM BICARBONATE 8.4% INJ 50MEQ 50 ML VIAL As Ordered ONE
[2019-11-06 19:20] LABS: APPEARANCE, URINE CLOUDY (CLEAR); BACTERIA, URINE AUTO NEGATIVE (NEGATIVE); BILIRUBIN, URINE AUTO NEGATIVE (NEGATIVE); BLOOD, URINE BLOOD NEGATIVE (NEGATIVE); CALCIUM OXALATE CRYSTALS SMALL; COLOR, URINE AMBER (YELLOW); GLUCOSE, URINE (UA) AUTO NEGATIVE (NEGATIVE); KETONE, URINE AUTO NEGATIVE (NEGATIVE); LEUKOCYTE ESTERASE, URINE AUTO 1+ (NEGATIVE); MUCUS, URINE MODERATE (NEGATIVE); NITRITE, URINE AUTO NEGATIVE (NEGATIVE); PROTEIN, URINE AUTO 1+ mg/dL (NEGATIVE); RBC, URINE AUTO 2 /HPF (0-3); SPECIFIC GRAVITY URINE AUTO 1.019 (1.002-1.035); SQUAMOUS EPITHELIAL CELL UR AU 29 /HPF (0-6); UROBILINOGEN, URINE AUTO 0.2 mg/dL (0.0-2.0); WBC, URINE AUTO 20 /HPF (0-3)
== END ==
LOC: M SFHCWAGY 17:08
PROVIDERS: ATTEND Surgery
DX: R39.15 Urgency of urination (principal)

== ENCOUNTER → 2019-11-08 | Outpatient (REF) | payer OTHER, MEDICAID ==
[2019-11-08 18:18] LABS: APPEARANCE, URINE MANUAL TURBID (CLEAR); COLOR, URINE MANUAL YELLOW (YELLOW)
[2019-11-08 18:19] LABS: BILIRUBIN, URINE MANUAL NEGATIVE (NEGATIVE); GLUCOSE, URINE (UA) MANUAL NEGATIVE (NEGATIVE); KETONE, URINE MANUAL NEGATIVE (NEGATIVE); PH,URINE MAN 5.5 UNITS (5.0 - 7.0); PROTEIN, URINE MANUAL NEGATIVE (NEGATIVE); SPECIFIC GRAVITY,URINE MANUAL 1.025 (1.002-1.035); UROBILINOGEN, URINE MANUAL NORMAL (NORMAL)
[2019-11-08 18:20] LABS: BLOOD URINE MANUAL NEGATIVE (NEGATIVE); LEUKOCYTE ESTERASE, URINE MAN TRACE (NEGATIVE); NITRITE, URINE MANUAL NEGATIVE (NEGATIVE)
[2019-11-08 18:29] LABS: AMORPHOUS SEDIMENT, URINE LARGE AMOUNT (NEGATIVE); MUCUS, URINE SMALL AMOUNT (NEGATIVE); RBC, URINE NONE SEEN /hpf (0-3); SQUAMOUS EPITHELIAL CELL URINE LARGE AMOUNT /hpf (SMALL AMT)
[2019-11-08 18:30] LABS: BACTERIA, URINE NONE SEEN; HYALINE CAST, URINE NONE SEEN /lpf (0-1)
[2019-11-08 19:39] LABS: CHLAMYDIA DNA AMPLIFICATION NEGATIVE (NEGATIVE); GC DNA AMPLIFICATION NEGATIVE (NEGATIVE)
== END ==
LOC: M LAB REF 16:36
PROVIDERS: ATTEND Nurse Practitioner Adult Health
DX: N30.20 Other chronic cystitis without hematuria (principal)

== ENCOUNTER 2019-11-14 21:16 | Emergency (ER) | payer MEDICAID, OTHER ==
[~2019-11-14] VITALS: Ht 165.1 cm; Wt 140.0 kg
[2019-11-14] MEDS ORDERED: URIB118C PO (21:21)
[2019-11-14] MEDS ORDERED: ALPR2TAB3 PO (21:21)
[2019-11-14 21:58] LABS: BASO # 0.1 10^3/uL (0.0-0.2); BASO % 0.5 % (0.0-1.0); EOS # 0.1 10^3/uL (0.0-0.5); EOS % 0.5 % (0.0-3.0); HEMATOCRIT 43.6 % (36.0-47.0); HEMOGLOBIN 14.2 g/dl (12.0-15.5); LYMPH # 2.4 10^3/uL (1.5-5.0); LYMPH % 22.5 % (24.0-44.0); MEAN CORPUSCULAR HEMOGLOBIN 29.9 pg (27.0-33.0); MEAN CORPUSCULAR HGB CONC 32.6 g/dl (32.0-36.5); MEAN CORPUSCULAR VOLUME 91.8 fl (80.0-96.0); MONO # 0.9 10^3/uL (0.0-0.8); MONO % 8.2 % (0.0-5.0); NEUTROPHILS # 7.3 10^3/uL (1.5-8.5); PLATELET COUNT, AUTOMATED 192 10^3/uL (150-450); RED BLOOD COUNT 4.75 10^6/uL (4.00-5.40); WHITE BLOOD COUNT 10.7 10^3/uL (4.0-10.0)
[2019-11-14 22:21] LABS: BILIRUBIN,DIRECT 0.1 MG/DL (0.0-0.2); BILIRUBIN,TOTAL 0.4 MG/DL (0.2-1.0); TOTAL PROTEIN 7.4 GM/DL (6.4-8.2)
[2019-11-14] MEDS ORDERED: KETOROLAC 30 MG/ML VIAL (J1885) IV ONE (23:00)
[2019-11-14] MEDS ORDERED: ISOVUE-370 76% 100ML VIAL (Q9967) As Ordered ONE (23:28)
[2019-11-14] MEDS: MORPHINE 4 MG/ML 1ML VIAL/SYRINGE (J2270) IV PRN ×2 (23:31→23:51)
--- NOTE | 2019-11-15 00:37 | REPVR ---
PROCEDURE INFORMATION: Exam: CT Abdomen And Pelvis With Contrast Exam date and time: 11/14/2019 11:21 PM Age: 48 years old Clinical indication: Abdominal pain; Generalized; Patient HX: Severe pain; Additional info: Severe back pain and pelvic pain TECHNIQUE: Imaging protocol: Computed tomography of the abdomen and pelvis with intravenous contrast. Radiation optimization: All CT scans at this facility use at least one of these dose optimization techniques: automated exposure control; mA and/or kV adjustment per patient size (includes targeted exams where dose is matched to clinical indication); or iterative reconstruction. Contrast material: ISO; Contrast volume: 100 ml; Contrast route: AC; COMPARISON: CT ABD PELVIS WITH CONTRAST 02/13/2016 12:39 PM FINDINGS: Liver: The liver is enlarged measuring 22 cm caudally. There is low attenuation suggesting fatty steatosis. No liver masses. Gallbladder and bile ducts: Normal. No calcified stones. No ductal dilation. Pancreas: Normal. No ductal dilation. Spleen: Normal. No splenomegaly. Adrenals: Normal. No mass. Kidneys and ureters: Normal. No hydronephrosis. Stomach and bowel: Mild intraluminal fluid and mucosal enhancement are noted in the small bowel. No wall thickening or other inflammatory changes. No bowel obstruction. The stomach and colon are unremarkable. Appendix: No evidence of appendicitis. Intraperitoneal space: Unremarkable. No free air. No significant fluid collection. Vasculature: Unremarkable. No abdominal aortic aneurysm. Lymph nodes: Unremarkable. No enlarged lymph nodes. Bladder: Unremarkable as visualized. Reproductive: Unremarkable as visualized. Bones/joints: Unremarkable. No acute fracture. Soft tissues: Unremarkable. IMPRESSION: 1. Mild mucosal enhancement and intraluminal fluid in the small bowel is nonspecific but may indicate a viral enteritis. No obstruction. 2. Hepatomegaly with hepatic steatosis. Electronically signed by: Jack Rae On 11/15/2019 00:36:36 AM
[2019-11-15] MEDS ORDERED: DICYCLOMINE 10 MG CAP PO ONE (01:00)
[2019-11-15] MEDS ORDERED: ONDANSETRON 4MG/2ML VIAL (J2405) IV ONE (02:15)
--- NOTE | 2019-11-15 02:18 | REPVR ---
PROCEDURE INFORMATION: Exam: US Pelvis Complete, Transabdominal Exam date and time: 11/15/2019 2:00 AM Age: 48 years old Clinical indication: Pelvic pain; Additional info: Severe pelvic pain, HX bladder sling TECHNIQUE: Imaging protocol: Real-time transabdominal pelvic ultrasound with image documentation. Complete exam. COMPARISON: US PELVIC NON OB COMPLETE 11/21/2018 11:27 AM FINDINGS: Uterus/cervix: Uterus measures 9.1 x 6.0 x 6.7 cm. Endometrial thickness is upper limits of normal at 12 mm. No endometrial or uterine masses. Right adnexa: Complex cyst containing some internal debris in the right ovary measuring 1.4 x 0.9 cm. No other right ovarian mass. Normal ovarian blood flow. No hydrosalpinx. Left adnexa: Small physiologic follicles in the left ovary. Normal blood flow. No hydrosalpinx or mass. Free fluid: None. Bladder: Urinary bladder is well-distended but grossly unremarkable. IMPRESSION: 1. Small complex or complicated cyst in the right ovary. 2. Otherwise unremarkable pelvic ultrasound. Electronically signed by: Jack Rae On 11/15/2019 02:18:22 AM
[2019-11-15] MEDS ORDERED: DICY10CA13 PO (02:48)
[2019-11-15] MEDS ORDERED: ONDA4TAB6 PO (02:48)
[2019-11-15 03:05] VITALS: BP 139/75
--- NOTE | 2019-11-15 13:42 | ED PDOC ---
Post-Departure Follow-Up dr cason faxed formal report of pelvic us for fu Mario Haq MD Nov 15, 2019 13:42
== END 2019-11-15 03:08 | disposition home or self-care (01) ==
LOC: M ED 21:16
DX: R10.2 Pelvic and perineal pain (principal); M54.5 Low back pain; R11.2 Nausea with vomiting, unspecified; K52.9 Noninfective gastroenteritis and colitis, unspecified; J44.9 Chronic obstructive pulmonary disease, unspecified; Z87.448 Personal history of other diseases of urinary system; R16.2 Hepatomegaly with splenomegaly, not elsewhere classified; N83.291 Other ovarian cyst, right side; Z79.899 Other long term (current) drug therapy; Z91.018 Allergy to other foods
CPT/HCPCS: 74177; 76830; 76856; 80047; 80076; 81001; 83690; 84702; 85025; 87086; 93041; 93976; 96374; 96375; 96376; 99284; J1885; J2270; J2405; Q9967

== ENCOUNTER → 2020-01-05 | Outpatient (CLI) | payer OTHER ==
[~2020-01-05] MED LIST changes: +ALPR2TAB3 PO; +DICY10CA13 PO; +ONDA4TAB6 PO; +URIB118C PO
--- NOTE | 2020-01-05 20:55 | REP ---
Clinical: Cough . Comparison: 02/03/2017 . Technique: PA and lateral. Findings: The mediastinum and cardiac silhouette are normal. The lung rivera are clear and without acute consolidation, effusion, or pneumothorax. The skeletal structures are intact and normal. Impression: 1. No acute cardiopulmonary process. Electronically Signed by Donta Pantoja MD 01/05/2020 08:45 P
== END ==
LOC: M RAD 20:19
PROVIDERS: ATTEND Physician Assistant
DX: R05 Cough (principal)

== ENCOUNTER → 2020-02-13 | Outpatient (REF) | payer OTHER ==
[2020-02-13 17:49] LABS: APPEARANCE, URINE HAZY (CLEAR); BACTERIA, URINE AUTO NEGATIVE (NEGATIVE); BILIRUBIN, URINE AUTO NEGATIVE (NEGATIVE); BLOOD, URINE BLOOD NEGATIVE (NEGATIVE); COLOR, URINE YELLOW (YELLOW); GLUCOSE, URINE (UA) AUTO NEGATIVE (NEGATIVE); KETONE, URINE AUTO NEGATIVE (NEGATIVE); LEUKOCYTE ESTERASE, URINE AUTO TRACE (NEGATIVE); NITRITE, URINE AUTO NEGATIVE (NEGATIVE); PROTEIN, URINE AUTO NEGATIVE (NEGATIVE); RBC, URINE AUTO 1 /HPF (0-3); SPECIFIC GRAVITY URINE AUTO 1.025 (1.002-1.035); SQUAMOUS EPITHELIAL CELL UR AU 6 /HPF (0-6); UROBILINOGEN, URINE AUTO 0.2 mg/dL (0.0-2.0); WBC, URINE AUTO 7 /HPF (0-3)
== END ==
LOC: M LAB REF 16:11
PROVIDERS: ATTEND Physician Assistant Medical
DX: N39.0 Urinary tract infection, site not specified (principal)

== ENCOUNTER → 2020-03-22 | Outpatient (REF) | payer OTHER ==
[2020-03-22 18:58] LABS: APPEARANCE, URINE CLEAR (CLEAR); BACTERIA, URINE AUTO NEGATIVE (NEGATIVE); BILIRUBIN, URINE AUTO NEGATIVE (NEGATIVE); BLOOD, URINE BLOOD NEGATIVE (NEGATIVE); COLOR, URINE YELLOW (YELLOW); GLUCOSE, URINE (UA) AUTO NEGATIVE (NEGATIVE); KETONE, URINE AUTO NEGATIVE (NEGATIVE); LEUKOCYTE ESTERASE, URINE AUTO NEGATIVE (NEGATIVE); MUCUS, URINE SMALL (NEGATIVE); NITRITE, URINE AUTO NEGATIVE (NEGATIVE); PROTEIN, URINE AUTO NEGATIVE (NEGATIVE); RBC, URINE AUTO 0 /HPF (0-3); SPECIFIC GRAVITY URINE AUTO 1.013 (1.002-1.035); SQUAMOUS EPITHELIAL CELL UR AU 2 /HPF (0-6); UROBILINOGEN, URINE AUTO 0.2 mg/dL (0.0-2.0); WBC, URINE AUTO 2 /HPF (0-3)
== END ==
LOC: M SMT 18:01
PROVIDERS: ATTEND Nurse Practitioner Women's Health
DX: R30.0 Dysuria (principal)

== ENCOUNTER → 2020-05-29 | Outpatient (REF) | payer OTHER ==
[~2020-05-29] MED LIST changes: +AMLO25TA PO; +[UNRECOGNIZED DRUG - OTHER] PO; +[UNRECOGNIZED DRUG - OTHER] PO
[2020-07-01 10:27] LABS: APPEARANCE, URINE CLEAR (CLEAR); BACTERIA, URINE AUTO NEGATIVE (NEGATIVE); BILIRUBIN, URINE AUTO NEGATIVE (NEGATIVE); BLOOD, URINE BLOOD NEGATIVE (NEGATIVE); COLOR, URINE YELLOW (YELLOW); GLUCOSE, URINE (UA) AUTO NEGATIVE (NEGATIVE); KETONE, URINE AUTO NEGATIVE (NEGATIVE); LEUKOCYTE ESTERASE, URINE AUTO NEGATIVE (NEGATIVE); NITRITE, URINE AUTO NEGATIVE (NEGATIVE); PROTEIN, URINE AUTO NEGATIVE (NEGATIVE); RBC, URINE AUTO 0 /HPF (0-3); SPECIFIC GRAVITY URINE AUTO 1.009 (1.002-1.035); SQUAMOUS EPITHELIAL CELL UR AU 2 /HPF (0-6); UROBILINOGEN, URINE AUTO 0.2 mg/dL (0.0-2.0); WBC, URINE AUTO 2 /HPF (0-3)
== END ==
LOC: M LAB REF 10:03
PROVIDERS: ATTEND Physician Assistant
DX: N39.0 Urinary tract infection, site not specified (principal)

== ENCOUNTER → 2020-06-11 | Outpatient (CLI) | payer OTHER ==
--- NOTE | 2020-07-15 16:09 | REP ---
DIGITAL DIAGNOSTIC BILATERAL MAMMOGRAPHY WITH CAD: 3D TOMOGRAPHY, AND FOCUSED BILATERAL SUBAREOLAR BREAST SONOGRAPHY: HISTORY: Clear nipple discharge. Clear and yellow in color. Bilateral breast pain. COMPARISON: Mammography 11/06/2019. Mammography is also reviewed from 09/11/2019 and 08/22/2019. MAMMOGRAPHIC FINDINGS: The breast parenchyma is extremely dense in a pattern which may inhibit the sensitivity of mammography. The [place] breast parenchymal density pattern is D. There is no dominant mass lesion on either side. No architectural distortion, microcalcification, or worrisome skin change is seen. No abnormal subareolar lesion is seen. The mammogram is unchanged from the 08/2019 prior study. SONOGRAPHIC FINDINGS: Bilateral focused subareolar sonography is performed. There are mildly dilated subareolar ducts visible bilaterally up to 4 mm in caliber. No intraductal finding. There is a 1.8 x 1.6 x 0.8 cm simple cyst at 12 o'clock in the left breast 1 cm from the nipple. No sonographically suspicious finding. IMPRESSION: BI-RADS Category 2 benign findings. Simple cyst left retroareolar region at 12 o'clock. Mildly prominent bilateral retroareolar breast ducts. Repeat screening mammography recommended in one year. BIRADS 2: BI-RADS/ACR category 2 mammogram. Benign findings. The patient SusanCarlitos estimated lifetime breast cancer risk assessment is 9.0%. The patient reports the date of her last clinical breast exam was in April 2020. This mammogram was read with the aid of an FDA approved computer-assisted detection system. Patient letter is M2 dense. CLARENCE
== END ==
LOC: M WHC 15:14
PROVIDERS: ATTEND Surgery
DX: N64.52 Nipple discharge (principal)
CPT/HCPCS: 76642; 77066; G0279

== ENCOUNTER 2020-08-08 22:48 | Observation (INO) | payer OTHER ==
[~2020-08-08] VITALS: Ht 165.1 cm; Wt 70.2 kg
[~2020-08-08 22:48] MED LIST changes: -AMLO25TA PO; -[UNRECOGNIZED DRUG - OTHER] PO; -[UNRECOGNIZED DRUG - OTHER] PO
[2020-08-08] MEDS ORDERED: [UNRECOGNIZED DRUG - OTHER] PO (23:02)
--- NOTE | 2020-08-08 23:56 | REPVR ---
PROCEDURE INFORMATION: Exam: CT Head Without Contrast Exam date and time: 08/08/2020 11:25 PM Age: 49 years old Clinical indication: Weakness, extremity; Left; Additional info: Left sided weakness TECHNIQUE: Imaging protocol: Computed tomography of the head without contrast. Radiation optimization: All CT scans at this facility use at least one of these dose optimization techniques: automated exposure control; mA and/or kV adjustment per patient size (includes targeted exams where dose is matched to clinical indication); or iterative reconstruction. COMPARISON: CT Head without contrast 09/12/2013 5:04 AM FINDINGS: Brain: There is no evidence of infarct, laboy-white matter differentiation is preserved. There is no hemorrhage or extra-axial collection. There is no mass. Cerebral ventricles: There is no hydrocephalus. Bones/joints: Unremarkable. No acute fracture. Paranasal sinuses: Visualized sinuses are unremarkable. No fluid levels. Mastoid air cells: Visualized mastoid air cells are well aerated. Soft tissues: Unremarkable. IMPRESSION: No intracranial lesion or injury and no change from prior scan. Electronically signed by: Khoi Paez On 08/08/2020 23:56:21 PM
--- NOTE | 2020-08-09 00:30 | REPVR ---
PROCEDURE INFORMATION: Exam: US Duplex Left Lower Extremity Veins, Limited Exam date and time: 08/08/2020 11:25 PM Age: 49 years old Clinical indication: Pain; Leg, upper and leg, lower; Left; Additional info: Lle pain R/O dvt TECHNIQUE: Imaging protocol: Real-time Duplex ultrasound of the Left Lower Extremity with 2-D rivers scale, color Doppler flow and spectral waveform analysis with image documentation. Limited exam focused on the left lower extremity veins. COMPARISON: No relevant prior studies available. FINDINGS: Left deep veins: Unremarkable. The common femoral, femoral, proximal profunda femoral and popliteal veins are patent without thrombus. Normal Doppler waveforms. Normal compressibility and/or augmentation response. Left superficial veins: Unremarkable. Saphenofemoral junction is patent without thrombus. Soft tissues: Unremarkable. IMPRESSION: No evidence of deep vein thrombosis. Electronically signed by: Jimbo Torres On 08/09/2020 00:30:47 AM
--- NOTE | 2020-08-09 00:32 | REPVR ---
PROCEDURE INFORMATION: Exam: US Duplex Left Upper Extremity Veins, Limited Exam date and time: 08/08/2020 12:11 AM Age: 49 years old Clinical indication: Pain; Arm, upper; Left; Additional info: Lue pain R/O dvt TECHNIQUE: Imaging protocol: Real-time Duplex ultrasound of the Left Upper Extremity with 2-D rivers scale, color Doppler flow and spectral waveform analysis with image documentation. Limited exam focused on the left upper extremity veins. COMPARISON: No relevant prior studies available. FINDINGS: Left deep veins: Unremarkable. Axillary and brachial veins are patent throughout without thrombus. Normal Doppler waveforms. Normal compressibility and/or augmentation response. Visualized internal jugular and subclavian veins are patent. Left superficial veins: Unremarkable. Visualized cephalic and basilic veins are patent without thrombus. Soft tissues: Unremarkable. IMPRESSION: No evidence of deep vein thrombosis. Electronically signed by: Jimbo Torres On 08/09/2020 00:32:14 AM
[2020-08-09 00:55] LABS: BASO % 0.5 % (0.0-1.0); EOS # 0.1 10^3/uL (0.0-0.5); EOS % 0.7 % (0.0-3.0); HEMATOCRIT 40.2 % (36.0-47.0); LYMPH % 25.8 % (24.0-44.0); MEAN CORPUSCULAR HEMOGLOBIN 28.8 pg (27.0-33.0); MEAN CORPUSCULAR HGB CONC 32.3 g/dl (32.0-36.5); MEAN CORPUSCULAR VOLUME 88.9 fl (80.0-96.0); MONO # 0.8 10^3/uL (0.0-0.8); MONO % 9.8 % (0.0-5.0); NEUTROPHILS # 4.8 10^3/uL (1.5-8.5); NEUTROPHILS % 62.8 % (36.0-66.0); PLATELET COUNT, AUTOMATED 201 10^3/uL (150-450); RED BLOOD COUNT 4.52 10^6/uL (4.00-5.40); WHITE BLOOD COUNT 7.7 10^3/uL (4.0-10.0)
[2020-08-09 01:17] LABS: INR 1.03; PROTHROMBIN TIME 13.7 SECONDS (12.5-14.3)
[2020-08-09 01:18] LABS: PARTIAL THROMBOPLASTIN TIME 31.2 SECONDS (24.2-38.5)
[2020-08-09 01:32] LABS: ALT/SGPT 14 U/L (12-78); BLOOD UREA NITROGEN 7 MG/DL (7-18); CALCIUM LEVEL 8.8 MG/DL (8.5-10.1); CARBON DIOXIDE LEVEL 25 MEQ/L (21-32); CHLORIDE LEVEL 108 MEQ/L (98-107); GLOMERULAR FILTRATION RATE > 60.0 (>58); GLUCOSE, FASTING 84 MG/DL (70-100); POTASSIUM SERUM 3.5 MEQ/L (3.5-5.1); SODIUM LEVEL 138 MEQ/L (136-145)
[2020-08-09 01:33] LABS: ALBUMIN 3.9 GM/DL (3.2-5.2); BILIRUBIN,DIRECT 0.2 MG/DL (0.0-0.2); BILIRUBIN,TOTAL 0.8 MG/DL (0.2-1.0); CK-MB VALUE MASS < 1.0 NG/ML (<3.6); CPK CREATINE PHOSPHOKINASE 42 U/L (26-192); FREE T4 1.08 NG/DL (0.76-1.46); MB/CK RELATIVE INDEX 2.38 (< OR =4); TOTAL PROTEIN 7.3 GM/DL (6.4-8.2); TROPONIN I < 0.02 NG/ML (< 0.10)
[2020-08-09] MEDS ORDERED: [UNRECOGNIZED DRUG - OTHER] PO (02:17)
--- NOTE | 2020-08-09 02:21 | REPVR ---
PROCEDURE INFORMATION: Exam: XR Chest, 1 View Exam date and time: 08/09/2020 1:37 AM Age: 49 years old Clinical indication: Other: Chest pain TECHNIQUE: Imaging protocol: XR of the chest Views: 1 view. COMPARISON: CR Chest, 2 view PA, Lat 01/05/2020 8:28 PM FINDINGS: Lungs: No acute infiltrate. Pleural space: Unremarkable. No pleural effusion. No pneumothorax. Heart/Mediastinum: Unremarkable. No cardiomegaly. Bones/joints: Unremarkable. IMPRESSION: No acute infiltrate. Electronically signed by: Prema Jose On 08/09/2020 02:22:03 AM
--- NOTE | 2020-08-09 03:10 | HPEPDOC ---
[facility] Medical History & Physical Date of Admission Aug 09, 2020 Date of Service: Aug 09, 2020 Attending Physician: DENIS CELAYA MD History and Physical TIME OF SERVICE: 430am CHIEF COMPLAINT: parestheisa and pain HISTORY OF PRESENT ILLNESS: This 49 yr old F presented w c/o relapsing and remitting left arm and left leg numbness for the last 3 days. She has never had these kind of symptoms before. She denies falling, dropping objects or drooling. She has been under a lot of marital stress lately. Per d/w he also noted transient left sided weakness during examination. REVIEW OF SYSTEMS: 12 point review of systems negative except as listed in HPI PAST MEDICAL/ SURGICAL HISTORY: PTSD Anxiety LEEP Hx of preeclampsia SOCIAL HISTORY: + tobacco - alcohol or drugs FAMILY HISTORY: Lung cancer, ovarian cancer, leukemia, CVA/MA and HTN ALLERGIES: Please see below. HOME MEDICATIONS: Please see below. PHYSICAL EXAMINATION: Vital Signs Date Time Temp Pulse Resp B/P (MAP) Pulse Ox O2 Delivery O2 Flow Rate FiO2 08/08/20 22:49 98.4 83 18 185/98 (127) 100 Room Air GEN: well-nourished / well developed/ anxious and tremulous during parts of the exam INTEGUMENT: not flushed/ not jaundice / + tattoos HEENT: lips acyanotic /mucus membranes moist and pink / sclera anicteric CVS: RRR/NMRG/ no JVP / radial pulses intact / no lower extremity edema LUNGS: able to speak full sentences without stopping to take a breath / no coughing / lungs are clear to auscultation bilaterally on room air ABDOMEN: Contour (flat) MSK/EXTREMITIES: NCAT / range of motion intact in all 4 extremities / no scoliosis / no kyphosis NEURO: CN 2-12 intact / speech is not dysarthric / mild left sided horizontal nystagmus/ strength is 5/5 PSYCH: alert and oriented to person place and time/ able to understand and follow all commands LABORATORY DATA: 08/09/20 00:40 08/09/20 00:40: Immature Granulocyte % (Auto) 0.4, Neutrophils (%) (Auto) 62.8, Lymphocytes (%) (Auto) 25.8, Monocytes (%) (Auto) 9.8H, Eosinophils (%) (Auto) 0.7, Basophils (%) (Auto) 0.5, Neutrophils # (Auto) 4.8, Lymphocytes # (Auto) 2.0, Monocytes # (Auto) 0.8, Eosinophils # (Auto) 0.1, Basophils # (Auto) 0.0, Nucleated Red Blood Cells % (auto) 0.0, Prothrombin Time 13.7, Prothromb Time International Ratio 1.03, Activated Partial Thromboplast Time 31.2, Anion Gap 5L, Glomerular Filtration Rate > 60.0, Calcium Level 8.8, Total Bilirubin 0.8, Direct Bilirubin 0.2, Aspartate Amino Transf (AST/SGOT) 9, Alanine Aminotransferase (ALT/SGPT) 14, Alkaline Phosphatase 63, Total Creatine Kinase 42, Creatine Kinase MB < 1.0, Creatine Kinase MB Relative Index 2.38, Troponin I < 0.02, Total Protein 7.3, Albumin 3.9, Albumin/Globulin Ratio 1.1L, Thyroid Stimulating Hormone (TSH) 3.180, Free Thyroxine 1.08 IMAGING: LUE US "IMPRESSION: No evidence of deep vein thrombosis." LLE US "IMPRESSION: No evidence of deep vein thrombosis." Chest xray "IMPRESSION: No acute infiltrate." CT head "IMPRESSION: No intracranial lesion or injury and no change from prior scan." MICROBIOLOGY: Please see below. ASSESSMENT: is a 49 yr old w a hx of PTSD & anxiety who presented w c/o LUE and LLE paresthesias of unclear cause. PLAN: 1. LUE/LLE Paresthesias Differential includes CVA vs neuropathy vs conversion disorder Plan: admit to medical floor / give ASA / f/u MRI brain , lipid panel and A1C / PT & OT eval / if work up is negative day time team may consider refering her to Neuro for EMG DVT PROPHYLAXIS: SCDs DISPOSITION: likely home later on during the day / will not order repeat blood work Home Medications Scheduled [Heart & Body Extract] , 0.5 ML PO TID Allergies Coded Allergies: alcohol (Verified Allergy, Unknown, 11/14/19) caffeine (Verified Allergy, Unknown, 11/14/19) A-FIB/CHADSVASC A-FIB History Current/History of A-Fib/PAF?: No Current PO Anticoag Therapy: No DENIS CELAYA MD Aug 09, 2020 03:10
[2020-08-09] MEDS ORDERED: MAALOX 30 ML SUSP *UDC PO PRN (03:15)
[2020-08-09] MEDS ORDERED: ACETAMINOPHEN TAB 650MG DOSE (2X325MG) PO PRN (03:15)
[2020-08-09] MEDS ORDERED: MOM 30ML SUSPENSION UDC PO PRN (03:15)
[2020-08-09] MEDS ORDERED: ASPIRIN 81 MG CHEW TABLET PO ONE (03:15)
[2020-08-09 03:37] LABS: CHOLESTEROL LEVEL 149 MG/DL (<200); CHOLESTEROL RISK RATIO 2.811 (<5); HDL CHOLESTEROL 53 MG/DL (>40); LDL CHOLESTEROL 77 MG/DL (<100); NON-HDL-C 96 MG/DL; TRIGLYCERIDES LEVEL 94 MG/DL (<150)
[2020-08-09 04:25] VITALS: BP 161/74
--- NOTE | 2020-08-09 08:56 | REP ---
INDICATION: transient weakness COMPARISON: None. TECHNIQUE: Stallings scale and color Doppler evaluation using linear high frequency transducer Findings: FINDINGS: Two-dimensional stallings scale and color images demonstrate smooth intimal thickening with normal arterial lumen, normal laminar flow and no appreciable narrowing. Color Doppler interrogation demonstrates normal arterial wave patterns and velocities with no significant spectral broadening. Normal flow direction is appreciated in the bilateral vertebral arteries. ICA peak systolic velocity: Right 78.0 cm/s; Left 83.5 cm/s ICA diastolic velocity: Right 29.0 cm/s; Left 37.6 cm/s ECA peak systolic velocity: Right 47.8 cm/s; Left 72.7 cm/s CCA peak systolic velocity: Right 97.2 cm/s; Left 107.6 cm/s ICA/CCA ratio: Right 0.80 cm/s; Left 0.78 cm/s IMPRESSION: No hemodynamically significant areas of narrowing or stenosis appreciated. Based on set standards narrowing falls within the normal/less than 50% range. <Electronically signed by Donta Pantoja > 08/09/20 0875
[2020-08-09] MEDS ORDERED: ENOXAPARIN 40MG/0.4ML SYRINGE (J1650 PER 10MG) SC SCH (09:00)
[2020-08-09] MEDS ORDERED: SLF 3 ML SYR IV PRN (10:15)
--- NOTE | 2020-08-09 10:24 | REPVR ---
PROCEDURE INFORMATION: Exam: MR Head Without Contrast Exam date and time: 08/09/2020 9:58 AM Age: 49 years old Clinical indication: Weakness, extremity; Left; Additional info: L arm and L leg paresthesias R/O posterior CVA TECHNIQUE: Imaging protocol: MR of the head without contrast. COMPARISON: CT Head without contrast 08/08/2020 11:28 PM FINDINGS: Brain: Normal. No acute infarct. No hemorrhage. No significant white matter disease. No edema. Cerebral ventricles: Normal. No ventriculomegaly. Bones/joints: Unremarkable. Paranasal sinuses: Normal as visualized. No acute sinusitis. Mastoid air cells: Normal as visualized. No mastoid effusion. Orbits: Unremarkable. Soft tissues: Unremarkable. IMPRESSION: No acute findings. Electronically signed by: Spencer Castro On 08/09/2020 10:24:36 AM
[2020-08-09 12:00] VITALS: BP 158/92
[2020-08-09] MEDS ORDERED: SLF 3 ML SYR IV SCH (14:00)
[2020-08-09 14:38] VITALS: BP 158/92
[2020-08-09] MEDS ORDERED: AMLO25TA PO (15:56)
--- NOTE | 2020-08-09 20:30 | ECGEPIP ---
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
--- NOTE | 2020-08-09 20:49 | DS.PDOC ---
Discharge Summary General Date of Admission Aug 08, 2020 at 22:49 Date of Discharge Aug 09, 2020 Attending Physician: AMRIT HEART DO Discharge Summary PROCEDURES PERFORMED DURING STAY: none ADMITTING DIAGNOSES: 1. LUE/LLE paresthesias 2. TIA 3. Anxiety 4. PTSD DISCHARGE DIAGNOSES: 1. LUE/LLE paresthesias 2. TIA 3. Anxiety 4. PTSD 5. Hypertension COMPLICATIONS/CHIEF COMPLAINT: Paresthesia And Pain Of Left Extremity. HISTORY OF PRESENT ILLNESS: Patient is a 49 year old female with anxiety and PTSD who presented to the ED for relapsing and remitting left arm and left leg numbness for the last 3 days. She denies falling, dropping objects, or drooling. She has been under a lot of marital stress lately. Per discussion with Dr. Beth, he also noted transient left sided weakness during examination HOSPITAL COURSE: Today, she was feeling better. She still has the paresthesias. MRI was negative for stroke and US carotids did not demonstrate stenosis. US of the left upper and left lower limbs did not demonstrate DVT. Obtained an Echocardiogram with bubble study. Spoke with her about her results and the next steps which would be an EMG outpatient. Otherwise, she had questions about her high blood pressure. Started patient on low-dose amlodipine as part of her anxiety may be contribution to high blood pressure. She was anxious to go home today. She denied any fever/chills, chest pain, dyspnea, abdominal pain, or dysuria. She felt well enough to go home, and she was subsequently discharged home DISCHARGE MEDICATIONS: Please see below. ALLERGIES: Please see below. PHYSICAL EXAMINATION ON DISCHARGE: VITAL SIGNS: Please see below. GENERAL: Comfortable, in no apparent distress. HEENT: Head normocephalic/atraumatic, EOMI, sclera clear. NECK: Supple. RESPIRATORY: Lungs clear to auscultation bilaterally, no rales, wheeze or rhonchi. CARDIOVASCULAR: Regular rate and rhythm. ABDOMEN: Soft, nontender, no guarding or rebound tenderness. Normal bowel sounds. MUSCLE SKELETAL: Muscle strength 5/5 in all extremities. NEUROLOGICAL: CN 312 grossly intact, no focal deficits noted. PSYCHOLOGICAL: Normal mood and affect LABORATORY DATA: Please see below. IMAGING: Ultrasound of the left upper extremity No evidence of deep vein thrombosis Ultrasound of the left lower extremity No evidence of deep vein thrombosis CT head No intracranial lesion or injury and no change from prior scan. MRI head No acute findings. Ultrasound carotid No hemodynamically significant areas of narrowing or stenosis appreciated. PROGNOSIS: Stable ACTIVITY: As tolerated. DIET: As tolerated DISCHARGE PLAN: Home DISPOSITION: 01 Home, Self-Care. DISCHARGE INSTRUCTIONS: 1. Follow-up with her PCP within 7 days 2. Referral for EMG by neurology for paresthesias of the left upper extremity and left lower extremity. ITEMS TO FOLLOWUP ON ON OUTPATIENT: 1. Echocardiogram with bubble study DISCHARGE CONDITION: Stable. Total time spent on discharge planning, discharge summary, and med conciliation: 35 minutes Vital Signs/I&Os Vital Signs Date Time Temp Pulse Resp B/P (MAP) Pulse Ox O2 Delivery O2 Flow Rate FiO2 08/09/20 14:38 57 158/92 08/09/20 12:00 98.5 18 98 Room Air I&O- Last 24 Hours up to 6 AM 08/09/20 06:00 Intake Total 0 ml Output Total 0 ml Balance 0 ml Laboratory Data Labs 24H Laboratory Tests 2 08/09/20 00:40: Immature Granulocyte % (Auto) 0.4, Neutrophils (%) (Auto) 62.8, Lymphocytes (%) (Auto) 25.8, Monocytes (%) (Auto) 9.8H, Eosinophils (%) (Auto) 0.7, Basophils (%) (Auto) 0.5, Neutrophils # (Auto) 4.8, Lymphocytes # (Auto) 2.0, Monocytes # (Auto) 0.8, Eosinophils # (Auto) 0.1, Basophils # (Auto) 0.0, Nucleated Red Blood Cells % (auto) 0.0, Prothrombin Time 13.7, Prothromb Time International Ratio 1.03, Activated Partial Thromboplast Time 31.2, Anion Gap 5L, Glomerular Filtration Rate > 60.0, Calcium Level 8.8, Total Bilirubin 0.8, Direct Bilirubin 0.2, Aspartate Amino Transf (AST/SGOT) 9, Alanine Aminotransferase (ALT/SGPT) 14, Alkaline Phosphatase 63, Total Creatine Kinase 42, Creatine Kinase MB < 1.0, Creatine Kinase MB Relative Index 2.38, Troponin I < 0.02, Total Protein 7.3, Albumin 3.9, Albumin/Globulin Ratio 1.1L, Triglycerides Level 94, Total Cholesterol 149, LDL Cholesterol 77, Non-HDL Cholesterol (LDL + VLDL) 96, Total HDL Cholesterol 53, Cholesterol/HDL Ratio 2.811, Thyroid Stimulating Hormone (TSH) 3.180, Free Thyroxine 1.08 08/09/20 00:46: Estimated Mean Plasma Glucose 97, Hemoglobin A1c 5.0 CBC/BMP Laboratory Tests 08/09/20 00:40 Discharge Medications Scheduled Amlodipine Besylate (Amlodipine Besylate) 2.5 Mg Tablet, 2.5 MG PO DAILY [Heart & Body Extract] , 0.5 ML PO TID, (Reported) Allergies Coded Allergies: alcohol (Verified Allergy, Unknown, 11/14/19) caffeine (Verified Allergy, Unknown, 11/14/19) AMRIT HEART DO Aug 09, 2020 20:49
--- NOTE | 2020-08-12 08:07 | ECHO ---
DATE OF PROCEDURE: 08/10/2020 Age: 49 Gender: Female Height: 65 inches Weight: 154 pounds Body surface area: 1.77 m2 PATIENT LOCATION: Inpatient progressive care unit (PCU), Room 3228. REFERRING PHYSICIAN: Daryl [place] DO INDICATION: Transient ischemic attack (TIA) cardiac source of embolic material ? MEASUREMENTS: 2D Measurements: RV 3.7 cm LV 4.8 cm Septum 1.1 cm Posterior wall 1.1 cm Aortic Root 3.1 cm LA 3.8 cm LVEF 70% Doppler Measurements: AV 1.43 m/s LVOT 1.14 m/s LVOT diameter 1.9 cm MV-E 81, A 65, E/A ratio 1.2 Early mitral deceleration time 243 m/s E prime medial 7.8, A prime medial 7.6, E prime lateral 10.8 PV 0.9 m/s Pulmonary artery acceleration time 153 m/s RVSP 28 mmHg IVC 2.0 cm COMMENTS: Sinus bradycardia without intraventricular conduction disturbance. M-mode and two-dimensional echocardiography was performed with pulse, continuous wave, color flow, and tissue Doppler studies. Normal left ventricular size, wall thickness, and hyperkinetic wall motion. Normal left atrial size and Doppler assessment of left ventricular (LV) diastolic function and estimated mean left atrial pressure. Normal right heart chamber sizes and motion and estimated pulmonary arterial pressure. Normal inferior vena cava (IVC) size and collapse against an elevated central venous pressure. Normal aortic dimensions. Normal appearing aortic valve and aortic valve function. Normal appearing mitral valve with adequate leaflet excursion and no posterior systolic buckling and only very mild insufficiency (physiologic). Normal appearing tricuspid valve with some mild insufficiency (physiologic). Unable to identify an intracardiac mass or vegetation, but if a cardiac source of embolic material is seriously suspect would recommend a transesophageal echocardiogram. No pericardial effusion. MTDD
== END 2020-08-09 17:35 | disposition home or self-care (01) ==
LOC: M ED 22:48 → M ED INP 22:49 → ENRESERV 08-09 03:28 → M PCU 08-09 05:06
PROVIDERS: ADMIT Internal Medicine; ATTEND Internal Medicine
DX: R20.2 Paresthesia of skin (principal); G45.9 Transient cerebral ischemic attack, unspecified; F41.9 Anxiety disorder, unspecified; F43.10 Post-traumatic stress disorder, unspecified; F32.9 Major depressive disorder, single episode, unspecified; I10 Essential (primary) hypertension; J44.9 Chronic obstructive pulmonary disease, unspecified; Z79.899 Other long term (current) drug therapy; Z91.018 Allergy to other foods; F17.218 Nicotine dependence, cigarettes, with other nicotine-induced disorders

== ENCOUNTER → 2020-10-04 | Outpatient (CLI) | payer OTHER ==
[~2020-10-04] MED LIST changes: +AMLO25TA PO; +[UNRECOGNIZED DRUG - OTHER] PO; +[UNRECOGNIZED DRUG - OTHER] PO
[2020-10-04 17:57] LABS: RHEUMATOID FACTOR QUANT < 10.0 IU/ML (<15.0)
[2020-10-04 18:08] LABS: VITAMIN B12 LEVEL 439 PG/ML (247-911)
[2020-10-04 18:09] LABS: FOLATE 9.1 NG/ML (>5.4)
[2020-10-10 11:08] LABS: ANTI THROMBIN 3 ANTIGEN IMMUNO 118 % (72-124); ANTI THROMBIN 3 FUNCT ACTIVITY 129 % (75-135); ANTINUCLEAR ANTIBODIES DIRECT Negative (Negative); CARDIOLIPIN IGA ANTIBODY <9 APL U/mL (0-11); CARDIOLIPIN IGG ANTIBODY 23 GPL U/mL (0-14); CARDIOLIPIN IGM ANTIBODY 16 MPL U/mL (0-12); PROTEIN C FUNCTIONAL ACTIVITY 118 % (73-180); PROTEIN S FUNCTIONAL ACTIVITY 92 % (63-140); VITAMIN B1 LEVEL WHOLE BLOOD 109.6 nmol/L (66.5-200.0); VITAMIN B6,PYRIDOXAL PHOSPHATE 2.3 ug/L (2.0-32.8); VITAMIN E(ALPHA TOCOPHEROL) 10.7 mg/L (7.0-25.1); VITAMIN E(GAMMA TOCOPHEROL) 1.6 mg/L (0.5-5.5)
== END ==
LOC: M WUC 14:59
PROVIDERS: ATTEND Psychiatry & Neurology Neurology
DX: G45.9 Transient cerebral ischemic attack, unspecified (principal); R20.2 Paresthesia of skin

== ENCOUNTER → 2021-02-18 | Outpatient (CLI) | payer OTHER ==
[~2021-02-18] MED LIST changes: +PROHANCE 279.3MG/ML 15ML VIAL As Ordered ONE
--- NOTE | 2021-02-19 16:23 | REP ---
INDICATION: HI RISK BREAST CA SCREENING. COMPARISON: MRI 09/19/2019, mammogram 06/11/2020. TECHNIQUE: Three Lin MRI imaging was performed with a dedicated breast coil. Axial, coronal, and sagittal T1 and T2 weighted scans were obtained with and without fat saturation in the usual fashion. The study includes dynamically acquired post gadolinium-enhanced imaging with image subtraction. Maximum intensity projection and multi planar reformation imaging is included as well. This study is interpreted with the aid of DATAllegro, an FDA approved computer aided detection (CAD) software program, on a dedicated breast MRI workstation. The gadolinium enhancement dose is 15 mL of intravenous ProHance. FINDINGS: There is an extreme pattern of parenchymal tissue bilaterally. There are multiple cysts scattered throughout each breast. The largest cyst in the right breast is posterolaterally and measures 1.2 cm in diameter. The largest cyst on the left is in the upper aspect and measures approximately 2.2 cm in maximum diameter. There is no axillary adenopathy. There is moderate background parenchymal enhancement bilaterally. There is no suspicious enhancing mass or morphologic abnormality. IMPRESSION: BI-RADS category 2 benign bilateral breast MRI. No suspicious enhancing mass or morphologic abnormality. <Electronically signed by Bob Stallings > 02/19/21 [id number]
== END ==
LOC: M RAD 15:27
PROVIDERS: ATTEND Surgery
DX: Z12.31 Encounter for screening mammogram for malignant neoplasm of breast (principal); N60.11 Diffuse cystic mastopathy of right breast; N60.12 Diffuse cystic mastopathy of left breast
CPT/HCPCS: A9576; C8908

== ENCOUNTER → 2021-04-07 | Outpatient (CLI) | payer OTHER ==
[~2021-04-07] MED LIST changes: -PROHANCE 279.3MG/ML 15ML VIAL As Ordered ONE
[2021-04-07 15:46] LABS: FOLATE 10.4 NG/ML; RHEUMATOID FACTOR QUANT < 10.0 IU/ML (<15.0); TOTAL 25(OH) VITAMIN D 31.4 NG/ML (30.0-100.0); VITAMIN B12 LEVEL 395 PG/ML
[2021-04-08 16:12] LABS: ANTINUCLEAR ANTIBODIES DIRECT Negative (Negative); CARDIOLIPIN IGA ANTIBODY <9 APL U/mL (0-11); CARDIOLIPIN IGG ANTIBODY 12 GPL U/mL (0-14); CARDIOLIPIN IGM ANTIBODY 10 MPL U/mL (0-12)
[2021-04-09 11:39] LABS: DRVV SCREEN 42.1 SEC
[2021-04-09 11:43] LABS: PTT LUPUS TYPE ANTICOAG SCREEN 1.1 (0-1.2)
== END ==
LOC: M WUC 11:30
PROVIDERS: ATTEND Psychiatry & Neurology Neurology
DX: R51.9 Headache, unspecified (principal)

== ENCOUNTER → 2021-07-31 | Outpatient (CLI) | payer OTHER ==
--- NOTE | 2021-07-31 12:36 | REP ---
INDICATION: CYST OF BREAST, BREAST PAIN; BREAST PAIN. COMPARISON: Mammogram 06/11/2020, 11/06/2019, 09/11/2019 and 08/22/2019. MRI 02/18/2021. TECHNIQUE: Bilateral mammography performed in the MLO, mL and CC projections with tomographic images. Spot compression views and focused ultrasound performed in the right breast inferiorly and left breast at 12 o'clock and laterally. Palpable lumps are marked on the skin. FINDINGS: The breast parenchyma is heterogeneously dense bilaterally. There is somewhat nodular parenchymal pattern again seen bilaterally. There appear to be 2 smoothly marginated low-density nodules at 11-12 o'clock in the right breast far posteriorly. These are located approximately 9 cm from the nipple. At the site of the palpable lump at 12 o'clock in the left breast there is a smoothly marginated nodule approximately 2.4 cm in diameter. Laterally at the site of the palpable lump in the left breast at approximately 3 o'clock posteriorly there is a smoothly marginated nodule approximately 1.5 cm in diameter. There is no evidence of architectural distortion. No clustered microcalcifications are seen. Focused right breast ultrasound demonstrates no cystic or solid nodule at the site of the reported palpable abnormality at 6 o'clock. Multiple cysts are seen elsewhere in the inferior right breast. The largest has a maximum diameter of 1.2 cm with KP a value 5.9. At 11-12 o'clock far posteriorly there are several cystic structures identified. An oval cystic structure at 12 o'clock measures 1.0 x 0.3 x 0.6 cm with KP a value 20. At 11 o'clock a bilobed simple cyst measures 1.1 x 1.2 x 0.9 cm with KP a value is 16.5. Focused left breast ultrasound performed. At the site of the palpable lump at 12 o'clock a simple cyst measures 2.4 x 2.6 x 1.2 cm with KP a value 14.1. A cluster of cysts at 3 o'clock in total measures 2.0 x 1.9 x 0.7 cm. Average KP a value 25.9. There is an adjacent cyst at 3 o'clock measuring 1.5 x 1.9 x 0.8 cm with KP a value 4.7. The Volpara volumetric breast density pattern is D. IMPRESSION: BIRADS/ACR category 2, benign. Multiple bilateral cysts identified mammographically and sonographically. No suspicious solid mass is visualized. This patient's Tyrer-Cuzick lifetime breast cancer risk assessment score is 17.1%. This mammogram was interpreted with the aid of an FDA-approved computer-aided detection system. The patient states she had a clinical breast exam in November 2020. The patient letter being requested is M2. RECOMMENDATION: Repeat screening mammography recommended 1 year (for women over 40). Recommend clinical correlation and follow-up. Decision for follow-up MRI at 1 year should be made based on clinical parameters. <Electronically signed by Bob Stallings > 07/31/21 [id number]
== END ==
LOC: M WHC 08:14
PROVIDERS: ATTEND Nurse Practitioner Women's Health
DX: N60.11 Diffuse cystic mastopathy of right breast (principal); N64.4 Mastodynia
CPT/HCPCS: 76642; 77066; G0279

== ENCOUNTER → 2021-09-08 | Outpatient (CLI) | payer OTHER ==
[2021-09-08 13:52] LABS: FREE T4 1.01 NG/DL (0.76-1.46); THYROID STIMULATING HORMONE 1.58 uIU/ML (0.358-3.740)
[2021-09-08 13:53] LABS: PROLACTIN 5.2 NG/ML
== END ==
LOC: M PLALAB 10:24
PROVIDERS: ATTEND Surgery
DX: N64.52 Nipple discharge (principal)

== ENCOUNTER → 2021-09-10 | Outpatient (CLI) | payer OTHER ==
[~2021-09-10] MED LIST changes: +BEET ROOT; +MULTTAB61 PO
[2021-09-10 10:23] VITALS: BP 118/78
== END ==
LOC: M WHCPRO 08:06
PROVIDERS: ATTEND Surgery
DX: D24.2 Benign neoplasm of left breast (principal); N60.09 Solitary cyst of unspecified breast

== ENCOUNTER → 2022-01-28 | Outpatient (CLI) | payer OTHER ==
[~2022-01-28] MED LIST changes: +PROHANCE 279.3MG/ML 15ML VIAL As Ordered ONE
== END ==
LOC: M RAD 12:39
PROVIDERS: ATTEND Surgery
DX: N64.52 Nipple discharge (principal); N60.19 Diffuse cystic mastopathy of unspecified breast
CPT/HCPCS: 77049; A9576

== ENCOUNTER → 2022-04-07 | Outpatient (REF) | payer OTHER ==
[~2022-04-07] MED LIST changes: -PROHANCE 279.3MG/ML 15ML VIAL As Ordered ONE
== END ==
LOC: M PLALAB 16:06
PROVIDERS: ATTEND Obstetrics & Gynecology
DX: Z12.4 Encounter for screening for malignant neoplasm of cervix (principal)

== ENCOUNTER → 2022-05-13 | Outpatient (REF) | payer OTHER ==
[2022-05-13 21:33] LABS: APPEARANCE, URINE HAZY (CLEAR); BACTERIA, URINE AUTO NEGATIVE (NEGATIVE); BILIRUBIN, URINE AUTO NEGATIVE (NEGATIVE); BLOOD, URINE BLOOD NEGATIVE (NEGATIVE); COLOR, URINE YELLOW (YELLOW); GLUCOSE, URINE (UA) AUTO NEGATIVE (NEGATIVE); KETONE, URINE AUTO NEGATIVE (NEGATIVE); LEUKOCYTE ESTERASE, URINE AUTO NEGATIVE (NEGATIVE); MUCUS, URINE SMALL (NEGATIVE); NITRITE, URINE AUTO NEGATIVE (NEGATIVE); PROTEIN, URINE AUTO NEGATIVE (NEGATIVE); RBC, URINE AUTO 1 /HPF (0-3); SPECIFIC GRAVITY URINE AUTO 1.016 (1.002-1.035); SQUAMOUS EPITHELIAL CELL UR AU 12 /HPF (0-6); UROBILINOGEN, URINE AUTO 0.2 mg/dL (0.0-2.0); WBC, URINE AUTO 2 /HPF (0-3)
== END ==
LOC: M LAB REF 20:56
PROVIDERS: ATTEND Physician Assistant
DX: N39.0 Urinary tract infection, site not specified (principal)

== ENCOUNTER → 2022-05-22 | Outpatient (REF) | payer OTHER ==
[2022-05-22 16:24] LABS: AMORPHOUS SEDIMENT MODERATE (NEGATIVE); APPEARANCE, URINE CLOUDY (CLEAR); BACTERIA, URINE AUTO NEGATIVE (NEGATIVE); BILIRUBIN, URINE AUTO NEGATIVE (NEGATIVE); BLOOD, URINE BLOOD 1+ (NEGATIVE); COLOR, URINE AMBER (YELLOW); GLUCOSE, URINE (UA) AUTO NEGATIVE (NEGATIVE); KETONE, URINE AUTO NEGATIVE (NEGATIVE); LEUKOCYTE ESTERASE, URINE AUTO NEGATIVE (NEGATIVE); MUCUS, URINE SMALL (NEGATIVE); NITRITE, URINE AUTO NEGATIVE (NEGATIVE); PROTEIN, URINE AUTO 1+ mg/dL (NEGATIVE); RBC, URINE AUTO 1 /HPF (0-3); SPECIFIC GRAVITY URINE AUTO 1.025 (1.002-1.035); SQUAMOUS EPITHELIAL CELL UR AU 9 /HPF (0-6); WBC, URINE AUTO 2 /HPF (0-3)
== END ==
LOC: M LAB REF 16:05
PROVIDERS: ATTEND Physician Assistant Medical
DX: N39.0 Urinary tract infection, site not specified (principal)

== ENCOUNTER → 2022-06-12 | Outpatient (CLI) | payer OTHER ==
[2022-06-12 13:30] LABS: HEMATOCRIT 45.7 % (36.0-47.0); HEMOGLOBIN 14.8 g/dl (12.0-15.5); MEAN CORPUSCULAR HGB CONC 32.4 g/dl (32.0-36.5); MEAN CORPUSCULAR VOLUME 89.6 fl (80.0-96.0); PLATELET COUNT, AUTOMATED 237 10^3/uL (150-450); WHITE BLOOD COUNT 9.2 10^3/uL (4.0-10.0)
[2022-06-12 14:11] LABS: BLOOD UREA NITROGEN 8 MG/DL (7-18); CALCIUM LEVEL 10.2 MG/DL (8.5-10.1); CARBON DIOXIDE LEVEL 28 MEQ/L (21-32); CHLORIDE LEVEL 103 MEQ/L (98-107); CREATININE FOR GFR 0.92 MG/DL (0.55-1.30); GLOMERULAR FILTRATION RATE > 60.0 (>51); GLUCOSE, FASTING 82 MG/DL (70-100); POTASSIUM SERUM 3.9 MEQ/L (3.5-5.1); SODIUM LEVEL 137 MEQ/L (136-145)
== END ==
LOC: M RAD 11:46
PROVIDERS: ATTEND Physician Assistant
DX: I10 Essential (primary) hypertension (principal); J45.40 Moderate persistent asthma, uncomplicated; R94.31 Abnormal electrocardiogram [ECG] [EKG]

== ENCOUNTER → 2022-07-02 | Outpatient (REF) | payer OTHER ==
[2022-07-02 22:07] LABS: APPEARANCE, URINE MANUAL CLEAR (CLEAR); COLOR, URINE MANUAL YELLOW (YELLOW)
[2022-07-02 22:09] LABS: PROTEIN, URINE MANUAL NEGATIVE (NEGATIVE); SPECIFIC GRAVITY,URINE MANUAL 1.015 (1.002-1.035)
[2022-07-02 22:10] LABS: BILIRUBIN, URINE MANUAL NEGATIVE (NEGATIVE); BLOOD URINE MANUAL NEGATIVE (NEGATIVE); GLUCOSE, URINE (UA) MANUAL NEGATIVE (NEGATIVE); KETONE, URINE MANUAL NEGATIVE (NEGATIVE); LEUKOCYTE ESTERASE, URINE MAN NEGATIVE (NEGATIVE); NITRITE, URINE MANUAL NEGATIVE (NEGATIVE); UROBILINOGEN, URINE MANUAL NORMAL (NORMAL)
== END ==
LOC: M LAB REF 21:34
PROVIDERS: ATTEND Physician Assistant
DX: N39.0 Urinary tract infection, site not specified (principal)

== ENCOUNTER → 2022-07-02 | Outpatient (CLI) | payer OTHER | LOC: M LABSMTC 11:58 | PROVIDERS: ATTEND Anesthesiology | DX: Z01.818 Encounter for other preprocedural examination (principal); Z11.52 Encounter for screening for COVID-19 ==

== ENCOUNTER → 2022-07-08 | Outpatient (REF) | payer OTHER ==
[2022-07-08 13:21] LABS: RSV AMPLIFICATION NEGATIVE (NEGATIVE)
== END ==
LOC: M LAB REF 12:12
PROVIDERS: ATTEND Physician Assistant
DX: B34.9 Viral infection, unspecified (principal)

== ENCOUNTER 2022-07-12 00:54 | Emergency (ER) | payer OTHER ==
[~2022-07-12] VITALS: Ht 165.1 cm; Wt 63.6 kg
[2022-07-12 00:55] VITALS: BP 157/79
[2022-07-12 01:26] LABS: BASO % 0.4 % (0.0-1.0); EOS # 0.1 10^3/uL (0.0-0.5); EOS % 1.1 % (0.0-3.0); HEMOGLOBIN 14.9 g/dl (12.0-15.5); LYMPH # 1.8 10^3/uL (1.5-5.0); LYMPH % 39.6 % (24.0-44.0); MEAN CORPUSCULAR HEMOGLOBIN 29.6 pg (27.0-33.0); MEAN CORPUSCULAR HGB CONC 33.9 g/dl (32.0-36.5); MEAN CORPUSCULAR VOLUME 87.5 fl (80.0-96.0); MONO # 0.5 10^3/uL (0.0-0.8); MONO % 11.7 % (2.0-8.0); NEUTROPHILS # 2.1 10^3/uL (1.5-8.5); NEUTROPHILS % 47.2 % (36.0-66.0); PLATELET COUNT, AUTOMATED 144 10^3/uL (150-450); RED BLOOD COUNT 5.03 10^6/uL (4.00-5.40); WHITE BLOOD COUNT 4.5 10^3/uL (4.0-10.0)
[2022-07-12 01:54] LABS: BLOOD UREA NITROGEN 15 MG/DL (7-18); CALCIUM LEVEL 8.8 MG/DL (8.5-10.1); CARBON DIOXIDE LEVEL 24 MEQ/L (21-32); CHLORIDE LEVEL 107 MEQ/L (98-107); CREATININE FOR GFR 0.72 MG/DL (0.55-1.30); GLOMERULAR FILTRATION RATE > 60.0 (>51); GLUCOSE, FASTING 101 MG/DL (70-100); POTASSIUM SERUM 4.1 MEQ/L (3.5-5.1); SODIUM LEVEL 138 MEQ/L (136-145)
[2022-07-12 01:57] LABS: CK-MB VALUE MASS < 1.0 NG/ML (<3.6); CPK CREATINE PHOSPHOKINASE 41 U/L (26-192); MB/CK RELATIVE INDEX 2.44 (< OR =4)
[2022-07-12 02:50] LABS: CK-MB VALUE MASS < 1.0 NG/ML (<3.6); CPK CREATINE PHOSPHOKINASE 35 U/L (26-192); MB/CK RELATIVE INDEX 2.86 (< OR =4)
== END 2022-07-12 03:11 | disposition left against medical advice (07) ==
LOC: M ED 00:54
DX: Z53.21 Procedure and treatment not carried out due to patient leaving prior to being seen by health care provider (principal)

== ENCOUNTER → 2022-10-28 | Outpatient (REF) | payer OTHER | LOC: M LAB REF 16:35 | PROVIDERS: ATTEND Physician Assistant | DX: J02.9 Acute pharyngitis, unspecified (principal) ==

== ENCOUNTER → 2022-12-01 | Outpatient (CLI) | payer OTHER | LOC: M WHC 13:01 | PROVIDERS: ATTEND Surgery | DX: N64.52 Nipple discharge (principal) ==

== ENCOUNTER → 2023-02-03 | Outpatient (CLI) | payer OTHER ==
[~2023-02-03] MED LIST changes: +PROHANCE 279.3MG/ML 15ML VIAL As Ordered ONE
== END ==
LOC: M RAD 15:15
PROVIDERS: ATTEND Surgery
DX: Z80.3 Family history of malignant neoplasm of breast (principal); Z85.41 Personal history of malignant neoplasm of cervix uteri; N64.52 Nipple discharge
CPT/HCPCS: 77049; A9576

== ENCOUNTER → 2023-02-13 | Outpatient (REF) | payer OTHER ==
[~2023-02-13] MED LIST changes: -PROHANCE 279.3MG/ML 15ML VIAL As Ordered ONE
[2023-02-13 17:54] LABS: APPEARANCE, URINE HAZY (CLEAR); BACTERIA, URINE AUTO NEGATIVE (NEGATIVE); BILIRUBIN, URINE AUTO NEGATIVE (NEGATIVE); BLOOD, URINE BLOOD 2+ (NEGATIVE); COLOR, URINE YELLOW (YELLOW); GLUCOSE, URINE (UA) AUTO NEGATIVE (NEGATIVE); KETONE, URINE AUTO NEGATIVE (NEGATIVE); LEUKOCYTE ESTERASE, URINE AUTO NEGATIVE (NEGATIVE); NITRITE, URINE AUTO NEGATIVE (NEGATIVE); PROTEIN, URINE AUTO NEGATIVE (NEGATIVE); RBC, URINE AUTO 0 /HPF (0-3); SPECIFIC GRAVITY URINE AUTO 1.018 (1.002-1.035); SQUAMOUS EPITHELIAL CELL UR AU 2 /HPF (0-6); UROBILINOGEN, URINE AUTO 0.2 mg/dL (0.0-2.0); WBC, URINE AUTO 3 /HPF (0-3)
[2023-02-13 19:28] LABS: GC DNA AMPLIFICATION NEGATIVE (NEGATIVE)
== END ==
LOC: M LAB REF 17:27
PROVIDERS: ATTEND Physician Assistant Medical
DX: N76.0 Acute vaginitis (principal)

== ENCOUNTER → 2023-06-15 | Outpatient (REF) | payer OTHER ==
[~2023-06-15] MED LIST changes: +DICY-61 PO; -DICY10CA13 PO
[2023-06-15 18:44] LABS: THYROID STIMULATING HORMONE 1.497 uIU/ML (0.55-4.78)
[2023-06-15 18:45] LABS: FREE T4 1.25 NG/DL (0.89-1.76)
[2023-06-15 18:59] LABS: CA19-9 TUMOR MARKER,CARBOHYDRA 29.2 U/ML (<35.0)
[2023-06-15 19:16] LABS: HIV 1&2 SCREEN NEGATIVE (NEGATIVE)
== END ==
LOC: M LAB REF 17:14
PROVIDERS: ATTEND Pediatrics
DX: R63.4 Abnormal weight loss (principal)

== ENCOUNTER → 2023-06-15 | Outpatient (CLI) | payer OTHER | LOC: M WHC 09:11 | PROVIDERS: ATTEND Nurse Practitioner Women's Health | DX: N64.52 Nipple discharge (principal) ==

== ENCOUNTER → 2023-07-02 | Outpatient (REF) | payer OTHER | LOC: M LAB REF 16:07 | PROVIDERS: ATTEND Pediatrics | DX: R30.0 Dysuria (principal) ==

== ENCOUNTER → 2023-07-08 | Outpatient (CLI) | payer OTHER ==
[~2023-07-08] MED LIST changes: +ASPI-226 PO; +CETI-24 PO; +FLUT12AE6 PO; +METH4PACK PO; +PANT40TA29 PO
== END ==
LOC: M WUC 15:03
PROVIDERS: ATTEND Pediatrics
DX: S09.93XA Unspecified injury of face, initial encounter (principal); X58.XXXA Exposure to other specified factors, initial encounter; Y92.9 Unspecified place or not applicable; Y93.9 Activity, unspecified; Y99.9 Unspecified external cause status

== ENCOUNTER → 2023-09-03 | Day surgery (SDC) | payer OTHER ==
[~2023-09-03] VITALS: Ht 165.1 cm; Wt 53.5 kg
[~2023-09-03] MED LIST changes: +AMIT25TA19 PO; +LOSA50TA28 PO; +NS 1,000 ML IV ONE; +RIZA10TA58 PO
== END | disposition home or self-care (01) ==
LOC: M OPP 12:23
PROVIDERS: ATTEND Surgery
DX: Z12.11 Encounter for screening for malignant neoplasm of colon (principal); Z53.9 Procedure and treatment not carried out, unspecified reason

== ENCOUNTER → 2023-10-28 | Outpatient (REF) | payer OTHER ==
[~2023-10-28] MED LIST changes: -NS 1,000 ML IV ONE
[2023-10-28 13:08] LABS: APPEARANCE, URINE HAZY (CLEAR); BACTERIA, URINE AUTO NEGATIVE (NEGATIVE); BILIRUBIN, URINE AUTO NEGATIVE (NEGATIVE); BLOOD, URINE BLOOD NEGATIVE (NEGATIVE); COLOR, URINE YELLOW (YELLOW); GLUCOSE, URINE (UA) AUTO NEGATIVE (NEGATIVE); KETONE, URINE AUTO NEGATIVE (NEGATIVE); LEUKOCYTE ESTERASE, URINE AUTO TRACE (NEGATIVE); MUCUS, URINE SMALL (NEGATIVE); NITRITE, URINE AUTO NEGATIVE (NEGATIVE); PROTEIN, URINE AUTO NEGATIVE (NEGATIVE); RBC, URINE AUTO 0 /HPF (0-3); SPECIFIC GRAVITY URINE AUTO 1.017 (1.002-1.035); SQUAMOUS EPITHELIAL CELL UR AU 8 /HPF (0-6); UROBILINOGEN, URINE AUTO 0.2 mg/dL (0.0-2.0); WBC, URINE AUTO 3 /HPF (0-3)
== END ==
LOC: M LAB REF 12:15
PROVIDERS: ATTEND Physician Assistant
DX: N39.0 Urinary tract infection, site not specified (principal)

== ENCOUNTER → 2023-11-09 | Outpatient (REF) | payer OTHER ==
[2023-11-09 19:59] LABS: ALBUMIN 4.1 G/DL (3.2-5.2); ALKALINE PHOSPHATASE 73 U/L (46-116); ALT/SGPT 16 U/L (7.0-40); AMYLASE 58 U/L (30-118); AST/SGOT 11 U/L (<34); BILIRUBIN,TOTAL 0.7 MG/DL (0.3-1.2); BLOOD UREA NITROGEN 13 MG/DL (9-23); CALCIUM LEVEL 9.4 MG/DL (8.5-10.1); CARBON DIOXIDE LEVEL 29 MMOL/L (20-31); CHLORIDE LEVEL 106 MMOL/L (98-107); CREATININE FOR GFR 0.77 MG/DL (0.55-1.30); GLOMERULAR FILTRATION RATE > 60.0 (>51); GLUCOSE, FASTING 70 MG/DL (60-100); POTASSIUM SERUM 4.7 MMOL/L (3.5-5.1); SODIUM LEVEL 139 MMOL/L (136-145); TOTAL PROTEIN 7.1 G/DL (5.7-8.2)
[2023-11-09 20:00] LABS: FREE T4 1.03 NG/DL (0.89-1.76)
== END ==
LOC: M LAB REF 17:51
PROVIDERS: ATTEND Pediatrics
DX: R63.4 Abnormal weight loss (principal)

== ENCOUNTER → 2023-11-16 | Outpatient (REF) | payer OTHER | LOC: M LAB REF 16:27 | PROVIDERS: ATTEND Pediatrics | DX: A64 Unspecified sexually transmitted disease (principal); Z77.21 Contact with and (suspected) exposure to potentially hazardous body fluids ==

== ENCOUNTER 2023-12-02 11:45 | Day surgery (SDC) | payer OTHER ==
[~2023-12-02] VITALS: Ht 167.6 cm; Wt 49.4 kg
[~2023-12-02 11:45] MED LIST changes: +AMIT75TA PO; +ERGO500029 PO; +FLOVENT INH; +THERTAB52 PO; +VITA-113 SL
[2023-12-02] MEDS: NS 1,000 ML IV ONE (12:19)
[2023-12-02] MEDS ORDERED: propofoL 200 MG/20 ML VIAL As Ordered ONE (12:35)
[2023-12-02] MEDS ORDERED: LIDOCAINE 2% 100MG/5ML SDV (FOR ANES.) As Ordered ONE (12:35)
[2023-12-02] MEDS ORDERED: fentaNYL 100 MCG/2 ML INJECTION As Ordered ONE (12:35)
[2023-12-02 13:14] VITALS: TEMP 97.2
[2023-12-02 13:35] VITALS: BP 127/75; O2SAT 98
== END 2023-12-02 13:45 | disposition home or self-care (01) ==
LOC: M OPP 11:45
PROVIDERS: ATTEND Surgery
DX: Z12.11 Encounter for screening for malignant neoplasm of colon (principal); Z80.0 Family history of malignant neoplasm of digestive organs; Z15.09 Genetic susceptibility to other malignant neoplasm; D12.6 Benign neoplasm of colon, unspecified; K57.30 Diverticulosis of large intestine without perforation or abscess without bleeding; K44.9 Diaphragmatic hernia without obstruction or gangrene; K21.00 Gastro-esophageal reflux disease with esophagitis, without bleeding; K29.70 Gastritis, unspecified, without bleeding; K31.89 Other diseases of stomach and duodenum; F17.200 Nicotine dependence, unspecified, uncomplicated; Z79.51 Long term (current) use of inhaled steroids; Z79.82 Long term (current) use of aspirin; Z79.899 Other long term (current) drug therapy; Z91.018 Allergy to other foods
CPT/HCPCS: 43239; 45380; 88305; J3010

== ENCOUNTER → 2023-12-06 | Outpatient (CLI) | payer OTHER | LOC: M RAD 13:33 | PROVIDERS: ATTEND Pediatrics | DX: Z12.2 Encounter for screening for malignant neoplasm of respiratory organs (principal) ==

== ENCOUNTER → 2023-12-29 | Outpatient (CLI) | payer OTHER | LOC: M WHC 12:22 | PROVIDERS: ATTEND Nurse Practitioner Women's Health | DX: R92.2 Inconclusive mammogram (principal); Z80.3 Family history of malignant neoplasm of breast; R92.333 Mammographic heterogeneous density, bilateral breasts; N64.4 Mastodynia; N64.52 Nipple discharge ==

== ENCOUNTER → 2024-01-07 | Outpatient (CLI) | payer OTHER | LOC: M PLAIMG 12:03 | PROVIDERS: ATTEND Physician Assistant | DX: R10.30 Lower abdominal pain, unspecified (principal); R63.4 Abnormal weight loss; R53.83 Other fatigue ==

== ENCOUNTER → 2024-07-11 | Outpatient (REF) | payer SELFPAY ==
[~2024-07-11] MED LIST changes: +ONDA-282 PO; -ONDA4TAB6 PO
[2024-07-11 22:40] LABS: APPEARANCE, URINE HAZY (CLEAR); BACTERIA, URINE AUTO NEGATIVE (NEGATIVE); BILIRUBIN, URINE AUTO NEGATIVE (NEGATIVE); BLOOD, URINE BLOOD NEGATIVE (NEGATIVE); COLOR, URINE YELLOW (YELLOW); GLUCOSE, URINE (UA) AUTO NEGATIVE (NEGATIVE); KETONE, URINE AUTO NEGATIVE (NEGATIVE); LEUKOCYTE ESTERASE, URINE AUTO NEGATIVE (NEGATIVE); MUCUS, URINE SMALL (NEGATIVE); NITRITE, URINE AUTO NEGATIVE (NEGATIVE); PROTEIN, URINE AUTO NEGATIVE (NEGATIVE); RBC, URINE AUTO 0 /HPF (0-3); SPECIFIC GRAVITY URINE AUTO 1.021 (1.002-1.035); SQUAMOUS EPITHELIAL CELL UR AU 8 /HPF (0-6); UROBILINOGEN, URINE AUTO 0.2 mg/dL (0.0-2.0); WBC, URINE AUTO 0 /HPF (0-3)
== END ==
LOC: M LAB REF 22:04
PROVIDERS: ATTEND Physician Assistant Medical
DX: N39.0 Urinary tract infection, site not specified (principal)

== ENCOUNTER → 2024-11-29 | Outpatient (REF) | payer OTHER ==
[2024-11-29 16:56] LABS: APPEARANCE, URINE HAZY (CLEAR); BACTERIA, URINE AUTO NEGATIVE (NEGATIVE); BILIRUBIN, URINE AUTO NEGATIVE (NEGATIVE); BLOOD, URINE BLOOD NEGATIVE (NEGATIVE); COLOR, URINE YELLOW (YELLOW); GLUCOSE, URINE (UA) AUTO NEGATIVE (NEGATIVE); KETONE, URINE AUTO NEGATIVE (NEGATIVE); LEUKOCYTE ESTERASE, URINE AUTO NEGATIVE (NEGATIVE); MUCUS, URINE SMALL (NEGATIVE); NITRITE, URINE AUTO NEGATIVE (NEGATIVE); PROTEIN, URINE AUTO NEGATIVE (NEGATIVE); RBC, URINE AUTO 0 /HPF (0-3); SPECIFIC GRAVITY URINE AUTO 1.019 (1.002-1.035); SQUAMOUS EPITHELIAL CELL UR AU 3 /HPF (0-6); UROBILINOGEN, URINE AUTO 0.2 mg/dL (0.0-2.0); WBC, URINE AUTO 0 /HPF (0-3)
== END ==
LOC: M LAB REF 16:33
PROVIDERS: ATTEND Physician Assistant
DX: N39.0 Urinary tract infection, site not specified (principal)

== ENCOUNTER → 2025-01-03 | Outpatient (REF) | payer OTHER | LOC: M LAB REF 17:30 | PROVIDERS: ATTEND Physician Assistant | DX: R30.0 Dysuria (principal) ==

== ENCOUNTER 2025-05-04 10:58 | Emergency (ER) | payer OTHER ==
[~2025-05-04] VITALS: Ht 167.6 cm; Wt 54.4 kg
[2025-05-04] MEDS: ONDANSETRON 4MG 2ML VIAL IV ONE ×2 (13:34→18:24)
[2025-05-04] MEDS: MORPHINE 2 MG/ML 1 ML VIAL IV PRN (13:34)
[2025-05-04 14:22] LABS: BASO # 0.1 10^3/uL (0.0-0.2); BASO % 0.8 % (0.0-1.0); EOS # 0.1 10^3/uL (0.0-0.5); EOS % 1.2 % (0.0-3.0); LYMPH # 1.6 10^3/uL (1.5-5.0); LYMPH % 24.5 % (24.0-44.0); MONO # 0.8 10^3/uL (0.0-0.8); MONO % 12.3 % (2.0-8.0); NEUTROPHILS # 4.0 10^3/uL (1.5-8.5); NEUTROPHILS % 61.0 % (36.0-66.0); PLATELET COUNT, AUTOMATED 120 10^3/uL (150-450)
[2025-05-04 14:44] LABS: ALT/SGPT 16 U/L (7.0-40); AST/SGOT 19 U/L (<34); CALCIUM LEVEL 9.3 MG/DL (8.5-10.1); CARBON DIOXIDE LEVEL 24 MMOL/L (20-31); CHLORIDE LEVEL 103 MMOL/L (98-107); CREATININE FOR GFR 0.78 MG/DL (0.55-1.30); GLOMERULAR FILTRATION RATE > 90.0 (>51); POTASSIUM SERUM 4.2 MMOL/L (3.5-5.1); SODIUM LEVEL 139 MMOL/L (136-145)
[2025-05-04] MEDS: HYDROMORPHONE HCL 0.5 MG/0.5 ML SYRINGE IV PRN (15:34)
[2025-05-04] MEDS ORDERED: CEFD1CAP9 PO (17:00)
[2025-05-04] MEDS ORDERED: HOME MED LIST COMPLETE! XX SCH (17:00)
[2025-05-04] MEDS ORDERED: PRED20TA PO (17:00)
[2025-05-04] MEDS ORDERED: METR-265 PO (17:00)
[2025-05-04 17:16] LABS: C REACTIVE PROTEIN QUANTITATIV 5.24 MG/DL (<1.0)
[2025-05-04 17:34] LABS: ERYTHROCYTE SEDIMENTATION RATE 40 mm/hr (0-30)
[2025-05-04] MEDS: KETOROLAC 30 MG/ML 1 ML VIAL IV ONE (19:02)
[2025-05-04 23:28] VITALS: TEMP 98; O2SAT 98
[2025-05-04] MEDS ORDERED: AMOX875T2 PO (23:45)
[2025-05-04] MEDS ORDERED: VALI5TAB PO (23:45)
[2025-05-04] MEDS ORDERED: PRED10TA2 PO (23:45)
[2025-05-05 00:15] VITALS: BP 137/76
== END 2025-05-05 00:18 | disposition home or self-care (01) ==
LOC: M ED 10:58
DX: M26.631 Articular disc disorder of right temporomandibular joint (principal); I10 Essential (primary) hypertension; N39.0 Urinary tract infection, site not specified; J44.9 Chronic obstructive pulmonary disease, unspecified; F41.9 Anxiety disorder, unspecified; F32.A Depression, unspecified; F17.200 Nicotine dependence, unspecified, uncomplicated; F12.10 Cannabis abuse, uncomplicated; Z79.899 Other long term (current) drug therapy; Z91.018 Allergy to other foods
CPT/HCPCS: 70110; 70336; 70480; 80048; 80076; 83605; 85025; 85652; 86140; 96374; 96375; 96376; 99285; J1171; J1885; J2405; J2765

== ENCOUNTER 2025-05-09 14:28 | Observation (INO) | payer OTHER ==
[~2025-05-09] VITALS: Ht 167.6 cm; Wt 53.7 kg
[~2025-05-09 14:28] MED LIST changes: +AMOX875T2 PO; +CEFD1CAP9 PO; +METR-265 PO; +PRED10TA2 PO; +PRED20TA PO; +VALI5TAB PO
[2025-05-09 15:14] LABS: PLATELET COUNT, AUTOMATED 240 10^3/uL (150-450)
[2025-05-09 15:26] LABS: VENOUS BASE EXCESS 2.9 (-2.0-2.0); VENOUS HCO3 27.4 MMOL/L (23.0-27.0); VENOUS O2 SATURATION 67.9 % (60.0-80.0); VENOUS PARTIAL PRESSURE CO2 41.5 mmHg (38.0-50.0); VENOUS PARTIAL PRESSURE O2 30.2 mmHg (30.0-50.0); VENOUS PH 7.438 UNITS (7.330-7.430); VENOUS STANDARD HCO3 26.2 MMOL/L; VENOUS TOTAL CO2 28.7 MMOL/L (24.0-28.0)
[2025-05-09 15:30] LABS: ETHYL ALCOHOL (ETHANOL) < 0.003 % (0.000-0.010)
[2025-05-09 15:31] LABS: SALICYLATE LEVEL < 3.0 MG/DL (<30)
[2025-05-09 15:47] LABS: ALT/SGPT 22 U/L (7.0-40); AST/SGOT 57 U/L (<34); CPK CREATINE PHOSPHOKINASE 62 U/L (34-145)
[2025-05-09 15:49] LABS: CK-MB VALUE MASS < 1.0 NG/ML (<3.6)
[2025-05-09 15:58] LABS: CALCIUM LEVEL 9.1 MG/DL (8.5-10.1); CARBON DIOXIDE LEVEL 27 MMOL/L (20-31); CHLORIDE LEVEL 103 MMOL/L (98-107); CREATININE FOR GFR 0.83 MG/DL (0.55-1.30); GLOMERULAR FILTRATION RATE 84.2 (>51); POTASSIUM SERUM 3.9 MMOL/L (3.5-5.1); SODIUM LEVEL 141 MMOL/L (136-145)
[2025-05-09] MEDS ORDERED: ISOVUE-370 76% 100 ML VIAL As Ordered ONE (16:04)
[2025-05-09 16:06] LABS: AMPHETAMINES LEVEL URINE NEGATIVE (NEGATIVE); BARBITURATES URINE NEGATIVE (NEGATIVE); COCAINE METABOLITE URINE NEGATIVE (NEGATIVE); METHADONE URINE NEGATIVE (NEGATIVE); OPIATES URINE NEGATIVE (NEGATIVE); PHENCYCLIDINE URINE NEGATIVE (NEGATIVE)
[2025-05-09 16:07] LABS: BENZODIAZEPINES URINE NEGATIVE (NEGATIVE); CANNABINOIDS URINE POSITIVE (NEGATIVE)
[2025-05-09 16:09] LABS: KETONE, URINE AUTO RFX NEGATIVE (NEGATIVE); LEUKOCYTE ESTERASE UR AUTO RFX NEGATIVE (NEGATIVE); MUCUS, URINE RFX SMALL (NEGATIVE); NITRITE, URINE AUTO RFX NEGATIVE (NEGATIVE); RBC, URINE AUTO RFX 2 /HPF (0-3); SQUAM EPITHELIAL CELL UR AURFX 0 /HPF (0-6); WBC, URINE AUTO RFX 1 /HPF (0-3)
[2025-05-09 16:31] LABS: ATYPICAL LYMPH 8 % (0-5); EOSINOPHILS 1 % (0-3); LYMPHOCYTES 24 % (16-44); MONOCYTES 9 % (0-5); NEUTROPHILS 58 % (28-66)
[2025-05-09 16:32] LABS: PLATELET ESTIMATE NORMAL (NORMAL)
[2025-05-09 17:12] LABS: CK-MB VALUE MASS < 1.0 NG/ML (<3.6)
[2025-05-09 17:14] LABS: CPK CREATINE PHOSPHOKINASE 30 U/L (34-145)
[2025-05-09] MEDS ORDERED: HOME MED LIST COMPLETE! XX SCH (19:05)
[2025-05-09] MEDS ORDERED: ACETAMINOPHEN 325 MG TAB PO PRN (21:10)
[2025-05-09] MEDS ORDERED: ALBUTEROL SULFATE 2.5 MG/0.5 ML INH CONCENTRATE NEB SOLN NEB PRN (21:15)
[2025-05-09] MEDS ORDERED: NICOTINE 21 MG/24 HR 1 EA TRANSDERMAL TD PRN (22:20)
[2025-05-09] MEDS ORDERED: IBUPROFEN 400 MG TAB PO PRN (22:30)
[2025-05-09] MEDS: amLODIPine 5 MG TAB PO ONE (23:10)
[2025-05-09 23:28] LABS: HIV 1&2 SCREEN NEGATIVE (NEGATIVE)
[2025-05-10 00:31] LABS: C REACTIVE PROTEIN QUANTITATIV 2.33 MG/DL (<1.0)
[2025-05-10 01:06] VITALS: BP 158/97; TEMP 97.3; O2SAT 99
[2025-05-10] MEDS: LR 1,000 ML IV SCH (01:07)
[2025-05-10 03:15] LABS: Trichomonas vaginalis (AMP) NOT DETECTED (NEGATIVE)
[2025-05-10 03:39] LABS: GC DNA AMPLIFICATION NEGATIVE (NEGATIVE)
[2025-05-10 04:00] VITALS: BP 166/94; TEMP 97.7; O2SAT 98
[2025-05-10 06:40] LABS: PLATELET COUNT, AUTOMATED 204 10^3/uL (150-450)
[2025-05-10 07:11] LABS: CALCIUM LEVEL 8.7 MG/DL (8.5-10.1); CARBON DIOXIDE LEVEL 27 MMOL/L (20-31); CHLORIDE LEVEL 103 MMOL/L (98-107); CREATININE FOR GFR 0.72 MG/DL (0.55-1.30); GLOMERULAR FILTRATION RATE > 90.0 (>51); POTASSIUM SERUM 4.1 MMOL/L (3.5-5.1); SODIUM LEVEL 140 MMOL/L (136-145)
[2025-05-10 08:00] VITALS: BP 143/81; TEMP 97.4; O2SAT 98
[2025-05-10] MEDS ORDERED: PANTOPRAZOLE 20 MG TAB PO SCH (09:00)
[2025-05-10] MEDS: HEPARIN SOD 5000 UNITS/ML 1 ML VIAL/SYRINGE SQ SCH (09:45)
[2025-05-10] MEDS: AUGMENTIN 875 MG TAB PO SCH (09:46)
[2025-05-10] MEDS: predniSONE 20 MG TAB PO SCH (09:47)
[2025-05-10 09:53] VITALS: BP_SYST 126; BP_SYST 136; BP_SYST 141; BP_DIAS 80; BP_DIAS 82
[2025-05-10 12:00] VITALS: BP 127/79; TEMP 97.7; O2SAT 100
[2025-05-10 12:20] VITALS: BP 126/79
[2025-05-10] MEDS: SUCRALFATE SUSP 1GM/10ML UD PO SCH (12:20)
[2025-05-10] MEDS: amLODIPine 5 MG TAB PO SCH (12:20)
[2025-05-10] MEDS ORDERED: PROT1TAB2 PO (19:44)
[2025-05-10] MEDS ORDERED: SUCR1TA PO (19:44)
[2025-05-11] MEDS ORDERED: PANTOPRAZOLE 20 MG TAB PO SCH (09:00)
== END 2025-05-10 14:10 | disposition home or self-care (01) ==
LOC: M ED 14:28 → EDBD 14:28 → M ED INP 14:29 → M MSPAV 05-10 01:55
PROVIDERS: ADMIT Student in an Organized Health Care Education/Training Program; ATTEND Internal Medicine
DX: R41.0 Disorientation, unspecified (principal); K29.70 Gastritis, unspecified, without bleeding; R53.1 Weakness; R33.9 Retention of urine, unspecified; R26.9 Unspecified abnormalities of gait and mobility; M26.629 Arthralgia of temporomandibular joint, unspecified side; N76.0 Acute vaginitis; N30.20 Other chronic cystitis without hematuria; R05.3 Chronic cough; K21.9 Gastro-esophageal reflux disease without esophagitis; I10 Essential (primary) hypertension; R63.4 Abnormal weight loss; R63.8 Other symptoms and signs concerning food and fluid intake; F12.90 Cannabis use, unspecified, uncomplicated; R10.13 Epigastric pain; N64.52 Nipple discharge; N60.01 Solitary cyst of right breast; N60.02 Solitary cyst of left breast; Z85.41 Personal history of malignant neoplasm of cervix uteri; J32.9 Chronic sinusitis, unspecified; Z86.73 Personal history of transient ischemic attack (TIA), and cerebral infarction without residual deficits; F41.0 Panic disorder [episodic paroxysmal anxiety]; F43.10 Post-traumatic stress disorder, unspecified; R16.0 Hepatomegaly, not elsewhere classified; Z98.51 Tubal ligation status; Z98.890 Other specified postprocedural states; Z82.41 Family history of sudden cardiac death; Z82.3 Family history of stroke; Z80.1 Family history of malignant neoplasm of trachea, bronchus and lung; Z82.49 Family history of ischemic heart disease and other diseases of the circulatory system; F17.210 Nicotine dependence, cigarettes, uncomplicated; Z88.8 Allergy status to other drugs, medicaments and biological substances; Z79.899 Other long term (current) drug therapy; Z79.2 Long term (current) use of antibiotics; Z79.52 Long term (current) use of systemic steroids
CPT/HCPCS: 36415; 51702; 70450; 71045; 72125; 74177; 80047; 80048; 80076; 80143; 80307; 81001; 82077; 82140; 82550; 82553; 82803; 83605; 83880; 84145; 84443; 84484; 85025; 85027; 85652; 86038; 86039; 86140; 86780; 87040; 87389; 87661; 87810; 87850; 93005; 93041; 93306; 93880; 94760; 96360; 96361; 97161; 99285; J7512; Q9967

== ENCOUNTER → 2025-06-11 | Outpatient (CLI) | payer OTHER ==
[~2025-06-11] MED LIST changes: +PROT1TAB2 PO; +SUCR1TA PO
== END ==
LOC: M PLAIMG 11:27
PROVIDERS: ATTEND Pediatrics
DX: R91.8 Other nonspecific abnormal finding of lung field (principal)

== ENCOUNTER → 2025-07-25 | Outpatient (REF) | payer OTHER ==
[2025-07-25 14:42] LABS: Trichomonas vaginalis (AMP) NOT DETECTED (NEGATIVE)
[2025-07-25 15:07] LABS: GC DNA AMPLIFICATION NEGATIVE (NEGATIVE)
== END ==
LOC: M LAB REF 12:03
PROVIDERS: ATTEND Pediatrics
DX: R30.0 Dysuria (principal)